=== PATIENT | female | born 1980 | race Caucasian/White ===

== ENCOUNTER 2020-05-05 15:18 | Emergency (ER) | payer MEDICARE, OTHER, SELFPAY ==
[2020-05-05] VITALS (7 sets, daily range): BP systolic 153–206; BP diastolic 78–98; PULSE 81–99; RESP 11–21; TEMP 36.9; O2SAT 97–100
--- NOTE | ~2020-05-05 | XR_ITS ---
EXAMINATION: XR chest 2V DATE: 05/05/2020 16:35 INDICATION: Left upper chest pain TECHNIQUE: PA and lateral views of the chest are obtained. COMPARISON: None available FINDINGS: The lungs are free of acute opacities. There is no pleural effusion or pneumothorax. The ca rdiomediastinal silhouette is normal. The visualized bones and soft tissues are unremarkable. IMPRESSION: 1. No acute cardiopulmonary abnormality. Reviewed, dictated and finalized at location A.
--- NOTE | 2020-05-05 15:20 | ECG_ITS ---
Measurements Intervals [place] Rate: 99 P: 39 UT: 159 QRS: -6 QRSD: 101 T: -20 QT: 337 QTc: 432 Interpretive Statements SINUS RHYTHM DELAYED PRECORDIAL R/S TRANSITION VOLTAGE CRITERIA FOR LVH BORDERLINE ST-T WAVE ABNORMALITY- ANT/INF LEADS BASELINE WANDER- II, III, AVR, AVF, V1-V2, V4-V6 BORDERLINE ECG Electronically Signed On 05-05-2020 20:18:12 CDT by Amauri Shabazz D.O.
[2020-05-05] MEDS: ASPIRIN 81 MG CHEWABLE TABLET 324 MG PO (15:37)
[2020-05-05 15:39] LABS: Basophils Absolute Auto 0.1 K/mm3 (0.0-0.1); Basophils Percent Auto 0.7 % (0.2-1.2); Eosinophils Absolute Auto 0.1 K/mm3 (0-0.3); Eosinophils Percent Auto 1.5 % (0-4.4); Hemoglobin 12.9 g/dL (12.0-15.0); Immature Granulocyte Absolute 0.02 K/mm3 (0.00-0.031); Immature Granulocyte Percent A 0.3 % (0-0.5); Lymphocytes Absolute Auto 2.38 K/mm3 (0.9-3.2); Lymphocytes Percent Auto 32.3 % (18.3-44.2); Mean Corpuscular HGB Conc 33.1 g/dl (32-36); Mean Corpuscular Hemoglobin 28.4 pg (26-34); Mean Corpuscular Volume 85.9 fl (80-100); Mean Platelet Volume 10.1 fl (7.4-10.4); Monocytes Absolute Auto 0.5 K/mm3 (0.1-0.6); Monocytes Percent Auto 6.9 % (2.6-8.5); Neutrophils Absolute Auto 4.3 K/mm3 (1.3-6.7); Neutrophils Percent Auto 58.3 % (45.5-73.1); Platelet Count Result 308 k/mm3 (150-375); Red Blood Count 4.54 M/mm3 (4.2-5.4); Red Cell Distribution Width 12.7 % (11.5-14.5); White Blood Count 7.4 K/mm3 (4.5-10.0)
[2020-05-05 15:49] LABS: Prothrombin Time 12.9 Seconds (11.1-14.7)
[2020-05-05 15:50] LABS: Anion Gap 15.7 mmol/L (7-16); Blood Urea Nitrogen 16 mg/dL (7-17); Calcium 9.4 mg/dL (8.4-10.2); Carbon Dioxide 26 mmol/L (22-30); Chloride 99 mmol/L (98-107); Estimated CRCL calculation 76 ml/min; Estimated Glomerular Filt Rate > 60; Glucose 121 mg/dL (65-105); Partial Thromboplastin Time 25.5 SECONDS (22.3-36.8); Potassium 3.7 mmol/L (3.4-5.0); Sodium 137 mmol/L (137-145)
[2020-05-05 16:02] LABS: Troponin I < 0.012 ng/mL (0.000-0.034)
--- NOTE | 2020-05-05 18:08 | ED.CHESTPAIN ---
HPI - Chest Pain General Chief Complaint: Chest Pain Stated Complaint: chest pain Time Seen by Provider: 05/05/20 16:05 Source: patient and family Mode of arrival: ambulatory Limitations: no limitations History of Present Illness HPI narrative: 40-year-old female By izabella is healthy but she has a history of PTSD bipolar and fibromyalgia and possibly metabolic syndrome She presents to the ER for evaluation of intermittent chest pains that she has been having for about a month The pain she experiences as a zing which lasts anywhere from a few seconds to maybe a minute at the longest She gets a number of these episodes every day and has not noticed that anything triggers them to occur She sometimes gets a little short of breath but uses albuterol for that and it is not related to her chest discomforts Related Data Home Medications Medication Instructions Recorded Confirmed lamotrigine 150 mg tablet 200 mg PO HS 01/20/20 trazodone 50 mg tablet 100 mg PO HS tablet 01/20/20 vortioxetine 10 mg tablet 10 mg PO HS 01/20/20 cholecalciferol (vitamin D3) 125 mcg PO DAILY 05/05/20 [Vitamin D3] docusate sodium 200 mg PO HS 05/05/20 venlafaxine 75 mg PO DAILY 05/05/20 Allergies Allergy/AdvReac Type Severity Reaction Status Date / Time avocado Allergy Unknown Swelling Verified 05/05/20 15:24 erythromycin base Allergy Unknown Vomiting Verified 11/29/18 08:04 gluten Allergy Unknown Nausea Verified 10/16/17 21:20 guaifenesin Allergy Unknown Hives Verified 11/29/18 08:05 metformin Allergy Unknown Nausea Verified 10/16/17 21:20 oseltamivir Allergy Unknown Nausea Verified 10/16/17 21:20 prazosin Allergy Unknown Hives Verified 11/29/18 08:05 shellfish derived Allergy Unknown Anaphylaxis Verified 05/05/20 15:24 SHELL FISH Allergy Unknown Anaphylaxis Uncoded 05/05/20 15:24 Review of Systems Review of Systems: All systems reviewed & are unremarkable except as noted in HPI and below Constitutional: Constitutional: Denies chills and Denies fever(s) Eyes: Eyes: Reports no additional eye complaints ENT: Denies dizziness and Denies sore throat Cardiovascular: Cardiovascular: Reports as per HPI and Reports no additional cardiovascular complaints Respiratory: Respiratory: Denies cough and Denies wheezing Gastrointestinal: Gastrointestinal: Denies diarrhea and Denies vomiting Musculoskeletal: Musculoskeletal: Reports myalgias and Reports arthralgias Neurologic: Denies vertigo and Denies syncope Psychiatric: Psychiatric: Reports depression Hematologic/Lymphatic: Hematologic/Lymphatic: Denies easy bleeding PMFSH Family History Family History Grandparent Hypertension Acute myocardial infarction Family history of dementia Family history of thoracic aortic aneurysm Family history of congestive heart failure Mother Hypertension Acute myocardial infarction Family history of malignant neoplasm of breast in first degree relative Father Family history of Parkinson's disease Other Family history of lupus erythematosus Family history of migraine headaches Social History Social History Smoking status: Never smoker Alcohol intake: current Gender identity (if verbalized by the patient): Female Exam Const: General: no acute distress and well developed Nutritional Appearance: obese Orientation/consciousness: patient oriented x3 (alert) and Other orientation findings (Alert) Limitations: no limitations HENMT: Head: normocephalic and atraumatic Ears: external ears normal General nose exam: No nasal discharge present Face and sinus: face symmetric Mouth: Yes tongue normal and Yes moist mucous membranes Throat: other (No exudate, no erythema) Eyes: Conjunctivae: conjunctivae normal Sclera: sclerae normal EOM: EOMs intact bilaterally Neck: Neck: full ROM, no lymphadenopathy and supple Thyroi
[2020-05-05 18:56] LABS: Troponin I < 0.012 ng/mL (0.000-0.034)
== END 2020-05-05 19:34 | disposition home or self-care (01) ==
PROVIDERS: General Practice; Emergency Provider Emergency Medicine; PCP Family Medicine
DX: R07.9 Chest pain, unspecified (principal); F43.10 Post-traumatic stress disorder, unspecified; F31.9 Bipolar disorder, unspecified; M79.7 Fibromyalgia; R94.31 Abnormal electrocardiogram [ECG] [EKG]
CPT/HCPCS: 36415; 71046; 80048; 84484; 85025; 85610; 85730; 93005; 99284; A9270

== ENCOUNTER 2021-10-08 10:03 | Outpatient (CLI) | payer MEDICARE, SELFPAY ==
--- NOTE | ~2021-10-08 | US_ITS ---
EXAMINATION: US pelvic complete w TV EXAM DATE: 10/08/2021 11:28 INDICATION: Abnormal uterine bleeding . TECHNIQUE: Pelvic transabdominal and transvaginal sonogram was performed. There are multiple graysca le and Doppler images available for interpretation. There is no prior study for comparison. FINDINGS: Uterus measures 7.0 x 3.1 x 4.1 cm as measured transabdominally. Bladder was not distended at time of imaging and there was poor acoustic window to evaluate the uterus. No endometrial thicken ing suspected. There is small free pelvic fluid. Right adnexa: The ovary measures 1.9 x 1.3 x 1.6 cm and is morphologically normal. Ovarian vascular f low confirmed. Left adnexa: The ovary measures 3.5 x 2.6 x 2.7 cm with small complex cystic lesion, probably small h emorrhagic cyst measuring 2.2 cm. Ovarian vascular flow confirmed. IMPRESSION: 1. Suboptimal uterus visualization but no endometrial thickening suspected. 2. Small complex cystic left ovarian lesion probably hemorrhagic cyst. Reviewed, dictated and finalized at location A. 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
== END 2021-10-08 10:04 | disposition home or self-care (01) ==
LOC: ANHIMG 10:05
PROVIDERS: PCP Family Medicine; Visit Provider Obstetrics & Gynecology
DX: N93.9 Abnormal uterine and vaginal bleeding, unspecified (principal); N83.202 Unspecified ovarian cyst, left side
CPT/HCPCS: 76830; 76856

== ENCOUNTER 2021-11-05 09:03 | Outpatient (CLI) | payer MEDICARE, SELFPAY ==
--- NOTE | ~2021-11-05 | MM_ITS ---
EXAMINATION: MM screening rhianna BI w joseph HISTORY: Screening mammogram, family history of breast cancer in her mother. TECHNIQUE: Craniocaudal and mediolateral oblique 3-D tomosynthesis images were obtained and synthetic 2-D images were generated. CAD analysis was submitted and interpreted. COMPARISON: None, baseline BREAST PARENCHYMAL COMPOSITION: The breasts are heterogeneously dense, which may obscure small masses . FINDINGS: RIGHT BREAST: There is no evidence of suspicious mass, calcification, or architectural distortion to suggest malignancy. LEFT BREAST: A mass is present in the posterior third of inner breast 10 cm from the nipple. IMPRESSION: 1. Left breast mass. 2. Additional mammographic views and possible breast ultrasound are recommended. BI-RADS Category 0: Incomplete: Needs additional imaging evaluation. Reviewed, dictated and finalized at location A. GER COST IMPRESSION: 1. Left breast mass. 2. Additional mammographic views and possible breast ultrasound are recommended . BI-RADS Category 0: Incomplete: Needs additional imaging evaluation.
== END 2021-11-05 09:04 | disposition home or self-care (01) ==
LOC: ANHIMG 09:07
PROVIDERS: PCP Family Medicine; Visit Provider Obstetrics & Gynecology
DX: Z12.31 Encounter for screening mammogram for malignant neoplasm of breast (principal); R92.8 Other abnormal and inconclusive findings on diagnostic imaging of breast
CPT/HCPCS: 77063; 77067

== ENCOUNTER 2021-11-18 12:35 | Outpatient (CLI) | payer MEDICARE, SELFPAY ==
--- NOTE | ~2021-11-18 | MMUS_ITS ---
EXAMINATION: MM diagnostic rhianna LT w joseph, US breast LT limited HISTORY: Follow-up left breast mass TECHNIQUE: Additional 3-D tomosynthesis images of the left breast were performed and synthetic 2-D im ages were generated. CAD analysis was submitted and interpreted. High resolution Limited left breast ultrasound was performed. COMPARISON: 11/05/2021 BREAST PARENCHYMAL COMPOSITION: Breast composed of scattered areas of fibroglandular density FINDINGS: MAMMOGRAPHIC FINDINGS: . There is a persistent mass in the lower inner quadrant of the left breast. No suspicious calcificat ions or architectural distortion. ULTRASOUND: Limited left breast ultrasound: At 9:00, 7 cm from the nipple there is a 9 mm cyst corresponding to t he mammographic abnormality. There is an adjacent mildly prominent tubular structure, likely focally prominent duct. IMPRESSION: 1. Probable benign findings of the left breast. 2. Recommend 6 month follow-up diagnostic left mammogram and limited ultrasound. BI-RADS category 3, probably benign findings. Reviewed, dictated and finalized at location A. E BANKER IMPRESSION: 1. Probable benign findings of the left breast. 2. Recommend 6 month follow-up diagnostic left mammogram and limited ultrasound . BI-RADS category 3, probably benign findings.
== END 2021-11-18 12:36 | disposition home or self-care (01) ==
LOC: ANHIMG 12:37
PROVIDERS: PCP Family Medicine; Visit Provider Family Medicine
DX: R92.8 Other abnormal and inconclusive findings on diagnostic imaging of breast (principal)
CPT/HCPCS: 76642; 77061; 77065; G0279

== ENCOUNTER 2021-12-19 14:56 | Outpatient (RCR) | payer MEDICARE, SELFPAY ==
[2021-12-19 14:58] VITALS: BMI 39.6
[2021-12-19 15:15] VITALS: BMI 39.6
== END 2022-03-12 13:38 | disposition home or self-care (01) ==
LOC: ANHDMC 14:56
PROVIDERS: PCP Family Medicine; Visit Provider Family Medicine
DX: E11.65 Type 2 diabetes mellitus with hyperglycemia (principal); E66.01 Morbid (severe) obesity due to excess calories; I10 Essential (primary) hypertension; Z68.41 Body mass index [BMI] 40.0-44.9, adult; Z71.3 Dietary counseling and surveillance
CPT/HCPCS: 97802; 99199

== ENCOUNTER → 2022-01-21 01:41 | Outpatient (CLI) | payer MEDICARE, SELFPAY ==
[2022-01-21 11:16] LABS: SARS-CoV-2 RNA PCR Negative
== END ==
PROVIDERS: PCP Family Medicine; Visit Provider Otolaryngology
DX: Z01.812 Encounter for preprocedural laboratory examination (principal); Z20.822 Contact with and (suspected) exposure to COVID-19
CPT/HCPCS: C9803; U0003; U0005

== ENCOUNTER 2022-01-22 15:18 | Outpatient (CLI) | payer MEDICARE, SELFPAY ==
--- NOTE | 2022-01-22 15:30 | ECG_ITS ---
Measurements Intervals [place] Rate: 69 P: 33 MO: 167 QRS: -3 QRSD: 93 T: -15 QT: 392 QTc: 420 Interpretive Statements SINUS RHYTHM LOW QRS VOLTAGE IN PRECORDIAL LEADS [QRS DEFLECTION < 1.0 mV IN CHEST LEADS] ABNORMAL ECG INFERIOR T-WAVE ABNORMALITY, CONSIDER ISCHEMIA NONSPECIFIC ST ABNORMALITY ABNORMAL ECG Electronically Signed On 01-22-2022 16:06:40 CDT by Ari Lee M.D.
[2022-01-22 15:51] LABS: Anion Gap 8 mmol/L (8-16); Blood Urea Nitrogen 13 mg/dL (7-17); Calcium 8.8 mg/dL (8.4-10.2); Carbon Dioxide 28 mmol/L (22-30); Chloride 102 mmol/L (98-107); Estimated Glomerular Filt Rate 55; Glucose 148 mg/dL (65-110); Potassium 4.4 mmol/L (3.4-5.0); Sodium 138 mmol/L (137-145)
== END 2022-01-22 15:19 | disposition home or self-care (01) ==
LOC: ANHSURGERY 15:21
PROVIDERS: Anesthesiology; PCP Family Medicine; Visit Provider Otolaryngology
DX: Z01.818 Encounter for other preprocedural examination (principal); E11.65 Type 2 diabetes mellitus with hyperglycemia; I10 Essential (primary) hypertension; R94.31 Abnormal electrocardiogram [ECG] [EKG]
CPT/HCPCS: 36415; 80048; 93005

== ENCOUNTER 2022-01-24 04:20 | Day surgery (SDC) | payer MEDICARE, SELFPAY ==
[2022-01-20 14:17] VITALS: BMI 39.4
--- NOTE | 2022-01-20 14:48 | PC.NURSE ---
Report to the Outpatient Waiting Room, entrance under the green pavilion located off [facility], at time 10:15 on date 01/24/22. OR Time: 12:15. - You and your visitor will be asked a series of questions to screen for COVID 19 for your protection. - A mask is required within the hospital. One visitor will be allowed to accompany the patient into the hospital. Patients visitor will be instructed to remain with patient at all times or leave the building. We will allow the visitor to come back to the postoperative area when patient is ready. Preoperative COVID Testing Requirements: COVID TEST 01/21 AT 8:45 No COVID Test needed if: (proof is required; if not received patient will have Rapid Test prior to entry) - Patient has received COVID Vaccine at least 14 days prior to procedure date or - Patient has positive COVID test result within last 90 days of surgery date. COVID Test needed if above criteria is not met If not COVID vaccinated a COVID test must be conducted within 72 hours of surgery and patient is asked to isolate self from time of testing until procedure. You will go to the [facility] for your COVID testing. The [employer] site is located at the corner of [address] [facility]. You will only be called if COVID results are positive and your surgeon may reschedule your elective surgery date. Patients may have clear liquids (water, carbonated beverages, clear teas, apple juice) until 3 hours prior to surgery (9:15) with a maximum of 20 ounces. - No food from midnight until time of surgery Take the following medications with a SIP of water the morning of surgery: SYNTHROID, INHALERS (IF NEEDED) Medications to discontinue per physician: VITAMINS/SUPPLEMENTS Date to take last dose: 01/20/22 Please no make-up, nail comoran, hairspray, perfume, deodorant, or body powder the day of surgery. No jewelry (including any body piercings) or valuables the day of surgery, leave them at home. Please take a shower or bath the night before, or the morning of, surgery with an antibacterial soap. Wear comfortable, loose fitting clothing. - Jewelry must be removed prior to entering the operating room. Rings and piercings that are not removed may be cut off. - The hospital will not accept responsibility for valuables. - Please leave all valuables, including medications, at home the day of surgery. If you are going home after surgery, a licensed telephone directory distributor driver must drive you home. - NO public transportation without another adult. - We recommend that an adult stay with you for 24 hours following discharge. - We also recommend that you do not drive, make important decision, drink alcoholic beverages, or take any drugs that were not prescribed by your health care provider for at least 24 hours after your discharge time. Follow any additional instructions given to you from your surgeon. Telephone instructions given to WILL GARDNER and asked if any additional questions and then verbalized understanding. Patient advised to call surgeon office or pre surgery nurse liaison [phone] if any additional questions.
--- NOTE | 2022-01-23 16:08 | PM.IMHP ---
H&P: HPI History of Present Illness Date/Time: 01/23/22 16:08 Chief Complaint: Neck mass posterior Narrative: patient presents for planned surgical procedure. No change in symptoms no change in history. Review of Systems Constitutional: Constitutional: Denies fatigue, Denies fever(s) and Denies lethargy Eyes: Eyes: Denies blurry vision and Denies change in vision ENT: Reports as per HPI Cardiovascular: Cardiovascular: Denies chest pain Respiratory: Respiratory: Denies cough Endocrine: Endocrine: Denies fatigue Hematologic/Lymphatic: Hematologic/Lymphatic: Denies easy bleeding, Denies easy bruising and Denies lymphadenopathy Allergic/Immunologic: Allergic/Immunologic: Denies seasonal rhinorrhea REPLACED BY [facility] Past Medical History Medical History Allergic rhinitis Amenorrhea, unspecified Body mass index (bmi) 38.0-38.9, adult (11/29/18) Bronchospasm Class 2 obesity with body mass index (BMI) of 38.0 to 38.9 in adult Obesity, unspecified Overweight (BMI 25.0-29.9) Family History Family History Grandparent Hypertension Acute myocardial infarction Family history of dementia Family history of thoracic aortic aneurysm Family history of congestive heart failure Mother Hypertension Acute myocardial infarction Family history of malignant neoplasm of breast in first degree relative Father Family history of Parkinson's disease Other Family history of lupus erythematosus Family history of migraine headaches Social History Social History Smoking status: Never smoker Alcohol intake: never Substance use: never Substance use type: does not use Gender identity (if verbalized by the patient): Female Spiritual care concerns: No Meds Home Medications and Allergies Home Medications Medication Instructions Recorded Confirmed Type albuterol sulfate 90 mcg/actuation 2 inhalation INHALATION Q4-6H #18 01/17/20 01/20/22 Rx aerosol inhaler gm lamotrigine 150 mg tablet 200 mg PO HS 01/20/20 01/20/22 History trazodone 50 mg tablet 100 mg PO HS PRN tablet 01/20/20 01/20/22 History docusate sodium 200 mg PO HS 05/05/20 01/20/22 History vortioxetine 10 mg tablet 20 mg PO HS tablet 10/23/21 01/20/22 History Synthroid 50 mcg tablet 50 mcg PO DAILY #90 tablet NS 10/30/21 01/20/22 Rx flash glucose scanning reader #1 ea 10/30/21 01/13/22 Rx flash glucose sensor #6 ea 10/30/21 01/13/22 Rx benztropine 1.5 mg PO HS 01/20/22 01/20/22 History cholecalciferol (vitamin D3) 125 mcg PO HS 01/20/22 01/20/22 History [Vitamin D3] coenzyme Q10 [CoQ-10] 100 mg PO HS 01/20/22 01/20/22 History empagliflozin [Jardiance] 10 mg PO HS 01/20/22 01/20/22 History esomeprazole magnesium [Nexium 20 mg PO HS 01/20/22 01/20/22 History 24HR] fluticasone furoate-vilanterol 1 inhalation INHALATION Q24H PRN 01/20/22 01/20/22 History [Breo Ellipta] lisinopril 20 mg PO HS 01/20/22 01/20/22 History metoprolol succinate 50 mg PO HS 01/20/22 01/20/22 History quetiapine 300 mg PO HS 01/20/22 01/20/22 History Allergies Allergy/AdvReac Type Severity Reaction Status Date / Time avocado Allergy Unknown Swelling Verified 01/20/22 14:11 erythromycin base Allergy Unknown Vomiting Verified 01/20/22 14:11 gluten Allergy Unknown Nausea Verified 01/20/22 14:11 guaifenesin Allergy Unknown Hives Verified 01/20/22 14:11 metformin Allergy Unknown Nausea Verified 01/20/22 14:11 oseltamivir Allergy Unknown Nausea Verified 01/20/22 14:11 prazosin Allergy Unknown Hives Verified 01/20/22 14:11 shellfish derived Allergy Unknown Anaphylaxis Verified 01/20/22 14:11 SHELL FISH Allergy Unknown Anaphylaxis Uncoded 01/20/22 14:11 Exam Const: General: cooperative, healthy appearing, comfortable, well developed and alert HENMT: Head: normal to inspection, normocephalic and atraumatic
--- NOTE | 2022-01-24 06:54 | WPDANESEPPF ---
Anes - Initial Pre Proc Eval Procedure: Operation Date: 01/24/22 13:45 Proposed Procedures p Excision Left Posterior Neck Mass - Jaspal Silveira MD Date/Time: 01/24/22 06:54 Surgeon: Jaspal Silveira MD Pre Op Diagnosis: left posterior neck mass Patient Data Age: 41 Gender: F Height: 1.63 m Weight: 104.33 kg Allergies Allergy/AdvReac Type Severity Reaction Status Date / Time avocado Allergy Unknown Swelling Verified 01/24/22 09:55 erythromycin base Allergy Unknown Vomiting Verified 01/24/22 09:55 gluten Allergy Unknown Nausea Verified 01/24/22 09:55 guaifenesin Allergy Unknown Hives Verified 01/24/22 09:55 metformin Allergy Unknown Nausea Verified 01/24/22 09:55 oseltamivir Allergy Unknown Nausea Verified 01/24/22 09:55 prazosin Allergy Unknown Hives Verified 01/24/22 09:55 shellfish derived Allergy Unknown Anaphylaxis Verified 01/24/22 09:55 SHELL FISH Allergy Unknown Anaphylaxis Uncoded 01/24/22 09:55 Home Medications Medication Instructions Recorded Confirmed Type albuterol sulfate 90 mcg/actuation 2 inhalation INHALATION Q4-6H #18 01/17/20 01/20/22 Rx aerosol inhaler gm lamotrigine 150 mg tablet 200 mg PO HS 01/20/20 01/20/22 History trazodone 50 mg tablet 100 mg PO HS PRN tablet 01/20/20 01/20/22 History docusate sodium 200 mg PO HS 05/05/20 01/20/22 History vortioxetine 10 mg tablet 20 mg PO HS tablet 10/23/21 01/20/22 History Synthroid 50 mcg tablet 50 mcg PO DAILY #90 tablet NS 10/30/21 01/24/22 Rx flash glucose scanning reader #1 ea 10/30/21 01/13/22 Rx flash glucose sensor #6 ea 10/30/21 01/13/22 Rx benztropine 1.5 mg PO HS 01/20/22 01/20/22 History cholecalciferol (vitamin D3) 125 mcg PO HS 01/20/22 01/20/22 History [Vitamin D3] coenzyme Q10 [CoQ-10] 100 mg PO HS 01/20/22 01/20/22 History empagliflozin [Jardiance] 10 mg PO HS 01/20/22 01/20/22 History esomeprazole magnesium [Nexium 20 mg PO HS 01/20/22 01/20/22 History 24HR] fluticasone furoate-vilanterol 1 inhalation INHALATION Q24H PRN 01/20/22 01/20/22 History [Breo Ellipta] lisinopril 20 mg PO HS 01/20/22 01/20/22 History metoprolol succinate 50 mg PO HS 01/20/22 01/20/22 History quetiapine 300 mg PO HS 01/20/22 01/20/22 History Patient hx anesthesia problems: none Family hx anesthesia problems: none Results Review: All pre-operative results and documents have been reviewed as part of the pre-operative evaluation. [facility] Past Medical History Medical History (Updated 01/24/22 @ 06:54 by Beto Tee DO) Allergic rhinitis Amenorrhea, unspecified Asthma Bipolar disorder, unspecified (11/30/18) Body mass index (bmi) 38.0-38.9, adult (11/29/18) Bronchospasm Class 2 obesity with body mass index (BMI) of 38.0 to 38.9 in adult Essential hypertension Fibromyalgia Hypothyroid Obesity, unspecified Overweight (BMI 25.0-29.9) Type 2 diabetes mellitus with hyperglycemia Family History Family History Grandparent Hypertension Acute myocardial infarction Family history of dementia Family history of thoracic aortic aneurysm Family history of congestive heart failure Mother Hypertension Acute myocardial infarction Family history of malignant neoplasm of breast in first degree relative Father Family history of Parkinson's disease Other Family history of lupus erythematosus Family history of migraine headaches Social History Social History Smoking status: Never smoker Alcohol intake: never Substance use: never Substance use type: does not use Living arrangements: with family Gender identity (if verbalized by the patient): Female Spiritual care concerns: No Anes - Eval Final PreProcedure Day of Procedure 01/24/22 06:54 Patient weight: obese Heart: regular rate and rhythm Lungs: clear to auscultation and normal air movement Airway: Mallampati scale class II Neurological: alert and
--- NOTE | 2022-01-24 07:12 | WPDHPUPDATE1 ---
History and Physical Update Update Date/Time: 01/24/22 07:12 History and Physical has been reviewed, including an updated exam of the patient. There are NO changes in the patient's condition. Risks, benefits, and alternatives have been discussed and questions answered. Patient agrees to proceed with procedure.
[2022-01-24 10:34] LABS: Glucose Point of Care 138 mg/dl (65-105)
[2022-01-24] MEDS: LACTATED RINGERS 1,000 ML 30 ML IV CONT ×2 (10:35→12:51)
[2022-01-24 10:36] VITALS: BP 136/90; PULSE 72; RESP 18; TEMP 36.5; O2SAT 98
[2022-01-24 11:21] LABS: Beta HCG Quantitative < 2.39 mIU/ML
[2022-01-24] MEDS: ceFAZolin SODIUM 1 GM VIAL 2 GM IV PUSH (11:26)
[2022-01-24] MEDS: LIDO 1%/EPINEPHRINE/PF 1:200,000 30 ML VIAL 10 ML XX (11:41)
[2022-01-24] MEDS: BACITRACIN/POLYMYXIN B OINT 15 GM TUBE 1 APPLIC TOPICAL (12:45)
[2022-01-24 12:51] VITALS: BP 124/72; PULSE 58; RESP 23; TEMP 36.8; O2SAT 100
[2022-01-24 13:05] VITALS: BP 115/81; PULSE 71; RESP 12; O2SAT 100
[2022-01-24 13:12] LABS: Glucose Point of Care 136 mg/dl (65-105)
--- NOTE | 2022-01-24 13:16 | P.OP_ITS ---
Procedure Note - Detailed Date of Procedure 01/24/22 Pre-op Diagnosis left posterior neck mass Post-op Diagnosis Same Procedure Performed Excision of left posterior neck mass Surgeon Jaspal Silveira MD Anesthesia General Indications See above Findings Fairly large 3-5 cm neck mass removed from the posterior deep region extending all the way to the prevertebral fascia sent for pathologic analysis Description of Procedure Patient identified consent verified. Patient brought to the operating. Time- out performed. General anesthesia induced. Endotracheal tube secured. Patient then positioned correctly. Patient prepped and draped. Second time-out performed. 4 cm incision drawn over the palpable left posterior neck mass. 1 cc 1% lidocaine 1 100,000 parts epinephrine injected deep to the pre drawn surgical incision. Fifteen blade used to cut through the skin. Bovie electrocautery at a setting 10 utilized to dissect down through the investing fascia. There was a small collection of fat which was removed. Possible mass was palpated deep to the investing fascia. Bovie electrocautery as well as blunt dissection and sharp dissection with scissors utilized to cut through this revealing a mass which appeared to be lipoma yet pale somewhat of a pathological lymph node appearance. This mass was 3-5 cm across and removed until the spinal rectus muscles were palpated. As much of the mass that was present and easily removed was. The wound was then copiously irrigated with sterile normal saline. [place] drain placed. Fascial layers closed with 3-0 interrupted Vicryl sutures. Deep dermal layer closed with 3 interrupted Vicryl sutures. Skin closed with a running 5 0 fast gut suture. Dennis sutured to skin with 3-0 interrupted nylon suture. Total blood loss probably 10 cc or less. I performed all dictated portions of the procedure. Care the patient was turned over to Anesthesiology. Antibiotic ointment placed over the incision. No complications. Estimated Blood Loss 10 Drains Yes Packing No Pathology Yes Complications No immediate complications Condition Stable Disposition PACU
[2022-01-24 13:20] VITALS: BP 121/89; PULSE 64; RESP 12; O2SAT 96
[2022-01-24] MEDS: fentaNYL CITRATE INJ (*CRX) 100 MCG/2 ML VIAL 25 MCG IV PUSH (13:25)
[2022-01-24 13:44] VITALS: BP 143/81; PULSE 70; RESP 14
[2022-01-24 14:10] VITALS: BP 137/81; PULSE 72; RESP 14
== END 2022-01-24 14:32 | disposition home or self-care (01) ==
PROVIDERS: Anesthesiology; PCP Family Medicine; Visit Provider Otolaryngology
PROC: (CPT 21552; principal; 2022-01-24 11:45)
DX: D17.0 Benign lipomatous neoplasm of skin and subcutaneous tissue of head, face and neck (principal); Z79.51 Long term (current) use of inhaled steroids; J45.909 Unspecified asthma, uncomplicated; F31.9 Bipolar disorder, unspecified; E11.65 Type 2 diabetes mellitus with hyperglycemia; M79.7 Fibromyalgia; E03.9 Hypothyroidism, unspecified; E66.9 Obesity, unspecified; Z68.39 Body mass index [BMI] 39.0-39.9, adult
CPT/HCPCS: 21552; 36415; 82948; 84702; 88304; 88307; A9270; J0330; J0690; J1100; J2405; J2704; J3010; J7120

== ENCOUNTER 2022-05-23 12:11 | Outpatient (CLI) | payer MEDICARE, SELFPAY ==
--- NOTE | ~2022-05-23 | MMUS_ITS ---
EXAMINATION: MM diagnostic rhianna LT w joseph, US breast LT limited HISTORY: Six-month follow-up for probably benign left breast mass TECHNIQUE: Craniocaudal, mediolateral, and mediolateral oblique 3-D tomosynthesis images of the left breast were performed and synthetic 2-D images were generated. CAD analysis was submitted and interpr eted. High resolution limited left breast ultrasound was performed. COMPARISON: 11/18/2021, 11/05/2021 BREAST PARENCHYMAL COMPOSITION: The breasts are heterogeneously dense, which may obscure small masses . FINDINGS: MAMMOGRAPHIC FINDINGS: There is a stable 9 mm oval, circumscribed, equal density mass in the posterior third of the inner br east at the 9:00 location 10 cm from the nipple. There has been no suspicious interval change. An are a of possible architectural distortion in the upper breast on the mediolateral view does not persist with spot compression. ULTRASOUND: There is a stable 9 mm x 5 mm oval, circumscribed, parallel, hypoechoic mass with no posterior featur es or internal vascularity at the 9:00 location 7 cm from the nipple. IMPRESSION: 1. Stable, probably benign left breast mass. 2. Recommend 6 month follow-up diagnostic mammogram and ultrasound. BI-RADS category 3, probably benign findings. Reviewed, dictated and finalized at location A. IMPRESSION: 1. Stable, probably benign left breast mass. 2. Recommend 6 month follow-up diagnostic mammogram and ultrasound. BI-RADS category 3, probably benign findings.
== END 2022-05-23 12:12 | disposition home or self-care (01) ==
PROVIDERS: PCP Family Medicine; Visit Provider Family Medicine
DX: R92.8 Other abnormal and inconclusive findings on diagnostic imaging of breast (principal)
CPT/HCPCS: 76642; 77061; 77065; G0279

== ENCOUNTER 2023-06-23 19:32 | Emergency (ER) | payer MEDICARE, SELFPAY ==
[2023-06-23 19:43] VITALS: BP 135/87; PULSE 71; RESP 16; TEMP 35.8; O2SAT 98
--- NOTE | 2023-06-23 20:19 | ED.GENADULT ---
HPI - General Adult General Chief complaint: Urogenital-Female Stated complaint: UTI Source: patient Mode of arrival: ambulatory Limitations: no limitations History of Present Illness HPI narrative: Patient presents for evaluation of urinary symptoms for the last 4 days. Symptoms include urinary frequency, hesitancy, dribbling, suprapubic pressure, low back pain and dysuria. She denies any fever, chills, vaginal bleeding/ discharge, hematuria. She has been taking azo for symptoms. She thinks she has urinary tract infection. Related Data Home Medications Medication Instructions Recorded Confirmed trazodone 50 mg tablet 100 mg PO HS PRN Insomnia 01/20/20 03/19/23 docusate sodium 100 mg capsule 200 mg PO HS 05/05/20 03/19/23 benztropine 1 mg tablet 1.5 mg PO HS 01/20/22 03/19/23 cholecalciferol (vitamin D3) 125 125 mcg PO HS 01/20/22 03/19/23 mcg (5,000 unit) tablet (Vitamin D3) coenzyme Q10 100 mg capsule 100 mg PO HS 01/20/22 03/19/23 (CoQ-10) esomeprazole magnesium 20 mg 20 mg PO HS 01/20/22 03/19/23 capsule,delayed release (Nexium 24HR) quetiapine 300 mg tablet 300 mg PO HS 01/20/22 03/19/23 lamotrigine 150 mg tablet 300 mg PO HS 02/12/23 03/19/23 (Lamictal) vortioxetine 10 mg tablet 10 mg PO HS 02/12/23 03/19/23 (Trintellix) Allergies Allergy/AdvReac Type Severity Reaction Status Date / Time avocado Allergy Unknown Swelling Verified 06/23/23 19:52 erythromycin base Allergy Unknown Vomiting Verified 06/23/23 19:52 gluten Allergy Unknown Nausea Verified 06/23/23 19:52 guaifenesin Allergy Unknown Hives Verified 06/23/23 19:52 metformin Allergy Unknown Nausea Verified 06/23/23 19:52 oseltamivir Allergy Unknown Nausea Verified 06/23/23 19:52 prazosin Allergy Unknown Hives Verified 06/23/23 19:52 shellfish derived Allergy Unknown Anaphylaxis Verified 06/23/23 19:52 bee venom protein (honey bee) Allergy Blister Verified 06/23/23 19:52 SHELL FISH Allergy Unknown Anaphylaxis Uncoded 06/23/23 19:52 Review of Systems Review of Systems: CONSTITUTIONAL: Denies fever, chills, or sweats. EYES: Denies visual changes, redness, or discharge. ENT: Denies rhinorrhea, congestion, sore throat, or otalgia. CARDIOVASCULAR: Denies chest pain, palpitations, or edema. RESPIRATORY: Denies cough or dyspnea. GASTROINTESTINAL: Denies abdominal pain, nausea, vomiting, or diarrhea. GENITOURINARY: Reports urinary frequency, hesitancy, dribbling, dysuria and suprapubic pressure. Denies Hematuria, vaginal bleeding or discharge. SKIN: Denies rash or itching. MUSCULOSKELETAL: Reports low back pain. Denies, joint pain, or myalgia. NEUROLOGIC: Denies headache, numbness, dizziness, or weakness. PSYCHIATRIC: Denies anxiety or depression. [facility] Past Medical History Medical History Allergic rhinitis Amenorrhea, unspecified Asthma Bipolar disorder, unspecified (11/30/18) Body mass index (bmi) 38.0-38.9, adult (11/29/18) Bronchospasm Class 2 obesity with body mass index (BMI) of 38.0 to 38.9 in adult Essential hypertension Fibromyalgia Hypothyroid Obesity, unspecified Overweight (BMI 25.0-29.9) Type 2 diabetes mellitus with hyperglycemia Surgical History Surgical History No pertinent past surgical history Family History Family History Grandparent Hypertension Acute myocardial infarction Family history of dementia Family history of thoracic aortic aneurysm Family history of congestive heart failure Mother Hypertension Acute myocardial infarction Family history of malignant neoplasm of breast in first degree relative Father Family history of Parkinson's disease Other Family history of lupus erythematosus Family history of migraine headaches Social History Social History (Updated 03/17/23 @ 13:42 by Sonia Umanzor MA)
== END 2023-06-23 20:24 | disposition home or self-care (01) ==
PROVIDERS: Emergency Provider Nurse Practitioner; PCP Family Medicine
DX: N39.0 Urinary tract infection, site not specified (principal); I10 Essential (primary) hypertension; E11.9 Type 2 diabetes mellitus without complications
CPT/HCPCS: 81003; 87077; 87086; 87186; 99213; G0463

== ENCOUNTER 2024-05-21 18:47 | Emergency (ER) | payer MEDICARE, SELFPAY ==
--- NOTE | 2024-05-21 18:49 | ED.DENTAL ---
HPI - Dental/Oral General Chief complaint: Dental/Oral Stated complaint: pain in mouth Time Seen by Provider: 05/21/24 18:48 Source: patient Mode of arrival: ambulatory Limitations: no limitations History of Present Illness HPI Narrative: Janeth is a 44-year-old female patient presenting to the clinic today with complaints of possible thrush. She reports has been having pain in the back of her throat. Is having difficulty swallowing. No fever, chills, or body aches. Does suffer from seasonal allergies. No recent antibiotics use. Related Data Home Medications Medication Instructions Recorded Confirmed trazodone 50 mg tablet 100 mg PO HS PRN Insomnia 01/20/20 05/21/24 docusate sodium 100 mg capsule 200 mg PO HS 05/05/20 05/21/24 benztropine 1 mg tablet 1.5 mg PO HS 01/20/22 05/21/24 cholecalciferol (vitamin D3) 125 125 mcg PO HS 01/20/22 05/21/24 mcg (5,000 unit) tablet (Vitamin D3) coenzyme Q10 100 mg capsule 100 mg PO HS 01/20/22 05/21/24 (CoQ-10) esomeprazole magnesium 20 mg 20 mg PO HS 01/20/22 05/21/24 capsule,delayed release (Nexium 24HR) quetiapine 300 mg tablet 300 mg PO HS 01/20/22 05/21/24 lamotrigine 150 mg tablet 300 mg PO HS 02/12/23 05/21/24 (Lamictal) vortioxetine 5 mg tablet 5 mg PO DAILY 12/10/23 05/21/24 (Trintellix) bupropion HCl 150 mg 24 hr tablet, 150 mg PO DAILY 04/27/24 05/21/24 extended release Allergies Allergy/AdvReac Type Severity Reaction Status Date / Time avocado Allergy Severe Swelling Verified 05/21/24 18:54 bee venom protein (honey bee) Allergy Severe Blister Verified 05/21/24 18:54 shellfish derived Allergy Severe Anaphylaxis Verified 05/21/24 18:54 erythromycin base Allergy Intermediate Vomiting Verified 05/21/24 18:54 guaifenesin Allergy Intermediate Hives Verified 05/21/24 18:54 prazosin Allergy Intermediate Hives Verified 05/21/24 18:54 gluten Allergy Mild Nausea Verified 05/21/24 18:54 metformin Allergy Mild Nausea Verified 05/21/24 18:54 oseltamivir Allergy Mild Nausea Verified 05/21/24 18:54 SHELL FISH Allergy Severe Anaphylaxis Uncoded 05/21/24 18:54 Review of Systems Review of Systems: Pertinent positives per HPI. Patient denies any fever, chills, rash, headache, visual changes, dizziness, cough, shortness of breath, chest pain, palpitations, nausea, vomiting, diarrhea, constipation, abdominal pain, or any urinary issues. [facility] Past Medical History Medical History Allergic rhinitis Amenorrhea, unspecified Asthma Bipolar disorder, unspecified (11/30/18) Body mass index (bmi) 38.0-38.9, adult (11/29/18) Bronchospasm Class 2 obesity with body mass index (BMI) of 38.0 to 38.9 in adult Essential hypertension Fibromyalgia Hearing loss associated with syndrome of both ears Hypothyroid Obesity, unspecified Overweight (BMI 25.0-29.9) Type 2 diabetes mellitus with hyperglycemia Family History Family History Grandparent Hypertension Acute myocardial infarction Family history of dementia Family history of thoracic aortic aneurysm Family history of congestive heart failure Mother Hypertension Acute myocardial infarction Family history of malignant neoplasm of breast in first degree relative Father Family history of Parkinson's disease Other Family history of lupus erythematosus Family history of migraine headaches Social History Social History Smoking status: Never smoker Alcohol intake: never Substance use: never Substance use type: does not use Do You Feel Safe in your Home?: Yes Lack of Transportation: No Lack of Food: Never True Current Housing: I Have Housing Concerned About Future Housing: No Difficulty Paying Gas/Electric Bills: No Difficulty Paying for Meds: No Currently Unemployed: No Education: Bachelor's Degree Difficulty w/
[2024-05-21 18:57] VITALS: BP 111/68; PULSE 86; RESP 16; TEMP 36.9; O2SAT 99
== END 2024-05-21 19:30 | disposition home or self-care (01) ==
PROVIDERS: Emergency Provider Nurse Practitioner Family; PCP Family Medicine
DX: J02.0 Streptococcal pharyngitis (principal); J45.909 Unspecified asthma, uncomplicated; E66.9 Obesity, unspecified; Z68.34 Body mass index [BMI] 34.0-34.9, adult; I10 Essential (primary) hypertension; M79.7 Fibromyalgia; E03.9 Hypothyroidism, unspecified; E11.9 Type 2 diabetes mellitus without complications; F31.9 Bipolar disorder, unspecified
CPT/HCPCS: 87880; 99213; G0463

== ENCOUNTER 2024-07-13 07:53 | Outpatient (CLI) | payer MEDICARE, SELFPAY | END 2024-07-13 07:54 | disposition home or self-care (01) | LOC: ANHAUDIO 07:56 | PROVIDERS: PCP Family Medicine; Visit Provider Family Medicine | DX: H91.93 Unspecified hearing loss, bilateral (principal); H93.13 Tinnitus, bilateral; R42 Dizziness and giddiness; H73.899 Other specified disorders of tympanic membrane, unspecified ear | CPT/HCPCS: 92557; 92567 ==

== ENCOUNTER 2025-04-13 16:07 | Emergency (ER) | payer MEDICARE, SELFPAY ==
--- NOTE | ~2025-04-13 | CT_ITS ---
CLINICAL INDICATION: Hematochezia COMPARISON: None. TECHNIQUE: Multiple contiguous axial images of the abdomen and pelvis were performed without the admi nistration of intravenous contrast The dose-length product (DLP) was 749.47 mGy-cm. Automated exposure control and iterative reconstruction technique were employed. FINDINGS/OBSERVATIONS: Visualized lower thorax: The bilateral lung bases are clear. The heart is of normal size, without pericardial effusion. Small hiatal hernia is present. Liver: The liver demonstrates homogeneous attenuation and is not enlarged. Gallbladder and biliary system: The gallbladder is only minimally distended, and otherwise unremarkable. Pancreas: Limited evaluation of the pancreas secondary to the lack of intravenous contrast. However, there is a 3.4 x 2.3 cm focus with rim calcifications in the body of the pancreas. No surrou nding inflammatory change is present. No distal pancreatic atrophy or ductal dilatation is noted. Spleen: The spleen demonstrates homogeneous attenuation and is not enlarged. Kidneys: The bilateral kidneys are unremarkable, without hydronephrosis or renal calculi. Adrenal glands: Unremarkable. Gastrointestinal tract: Mural thickening with surrounding inflammatory change within the descending colon for which a short s egment colitis is suspected. Appendix: The appendix is not definitively visualized. However, no pericecal inflammatory change is identified suggest the presence of acute appendicitis. Vasculature: Unremarkable. Lymph nodes: Limited evaluation without intravenous contrast. Pelvic structures: The bladder is distended, and otherwise unremarkable. The uterus is anteverted and anteflexed, and otherwise unremarkable. 18 mm focus of increased attenuation within the right ovary, possibly a hemorrhagic cyst for which fo cused ultrasound is recommended. Body wall and musculoskeletal: No significant degenerative disease within the lower thoracic or lumbosacral spine. IMPRESSION: Findings within the descending colon for which a colitis is suspected. Findings within the body of the pancreas for which the differential diagnosis is broad and includes a pancreatic pseudocyst with a rim or a shell-like calcification, mucinous cystic neoplasm, serous cys tadenoma, versus metastatic disease (rare and less likely). Contrast enhanced MRI (with pancreatic mass protocol) is suggested for further evaluation and for bio psy planning (endoscopic versus percutaneous). Of note, this focus is amenable to percutaneous biopsy with hydrodissection. Additional findings within the right ovary which may represent a hemorrhagic cyst for which focused u ltrasound is recommended. Reviewed, dictated and finalized at location A. IMPRESSION: Findings within the descending colon for which a colitis is suspected. Findings within the body of the pancreas for which the differential diagnosis i s broad and includes a pancreatic pseudocyst with a rim or a shell-like calcifi cation, mucinous cystic neoplasm, serous cystadenoma, versus metastatic disease (rare and less likely). Contrast enhanced MRI (with pancreatic mass protocol) is suggested for further evaluation and for biopsy planning (endoscopic versus percutaneous). Of note, this focus is amenable to percutaneous biopsy with hydrodissection. Additional findings within the right ovary which may represent a hemorrhagic cy st for which focused ultrasound is recommended.
--- OUTSIDE RECORDS SUMMARY | 2025-04-13 16:10 | XMS_ITS | Clinical Summary ---
Author Organization [facility] Address [address] [place] [address] Care Team Providers Care Cement Worker Name Role Phone Martha Nolen MD Primary Care Provider + Letty Giordano MD Unavailable [phone] Allergies Active Allergy Reactions Criticality Noted Date Comments Avocado Oil Other (See comments),Swelling Medium 06/11/2018 Gluten Stomach upset Low 06/11/2018 [place] Extract Itching Low 11/11/2019 Prazosin Palpitations Low 06/11/2018 Shellfish Containing Products Anaphylaxis High 06/11/2018 Medications lamoTRIgine (LaMICtal) 150 mg tablet 05/20/2022 Active benztropine (COGENTIN) 1 mg tablet 07/01/2022 Active metoprolol XL (TOPROL-XL) 50 mg extended release tablet Take 50 mg by mouth daily 07/10/2022 Active lisinopriL (PRINIVIL,ZESTR IL) 20 mg tablet Take 20 mg by mouth daily 06/22/2022 Active Synthroid 50 mcg tablet Take 50 mcg by mouth daily 07/02/2022 Active QUEtiapine (SEROquel) 300 mg tablet 07/01/2022 Active traZODone (DESYREL) 100 mg tablet Take by mouth nightly as needed 07/01/2022 Active Trintellix 20 mg tablet Take 20 mg by mouth daily 07/02/2022 Active Active Problems Problem Noted Date Diagnosed Date Mass of left breast 08/12/2022 Surgical History Surgery Date Site/Laterality Comments MYRINGOTOMY W/ TUBES BREAST BIOPSY 08/26/2022 Left Medical History Medical History Date Comments Bipolar 1 disorder (HCC) PTSD (post-traumatic stress disorder) Hypertension Depression Thyroid disease Family History Medical History Relation Name Comments Breast cancer Mother Relation Name Status Comments Mother Social History Tobacco Use Types Packs/Day Years Used Date Smoking Tobacco: Never Smokeless Tobacco: Never Tobacco Cessation:Counseling Given: Not Answered AUDIT-C Answer Date Recorded Q1: How often do you have a drink containing alcohol? Never 08/12/2022 Q2: How many drinks containi ng alcohol do you have on a typical day when you are drinking? Patient does not drink Q3: How often do you have si x or more drinks on one occasion? 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 Gender Identity Not on file Sexual Orientation Not on file Obstetrics History Last Filed Vital Signs Vital Sign Reading Time Taken Comments Blood Pressure - - Pulse - - Temperature - - Respiratory Rate - - Oxygen Saturation - - Inhaled Oxygen Concentration - - Weight 102.1 kg (225 lb) 08/12/2022 8:50 AM CDT Height 162.6 cm (5' 4) 08/12/2022 8:50 AM CDT Body Mass Index 38.62 08/12/2022 8:50 AM CDT Plan of Treatment Health Maintenance Due Date Last Done Comments Breast Cancer Screening-Mammogram 1980 Cervical Cancer Screening 1980 Colon Cancer Screening-Colonoscopy 1980 Depression Screening 1980 Hepatitis C Screening 1980 DTaP/Tdap/Td Vaccine (1 - Tdap) 01/26/1991 Varicella Vaccines (1 of 2 - 13+ 2-dose series) 01/26/1993 Hepatitis B Screening 01/26/1998 Regular Well Visit/Exam 18-64 01/26/1998 Pneumococcal vaccine <65 (2 of 2 - PCV) 10/30/2022 10/30/2021 Influenza Vaccine (Season Ended) 2025 10/23/19 22 HPV Vaccines Aged Out No longer eligi ble based on patient's age to complete this topic Insurance MEDICARE MEDICARE Care Teams Cement Worker Relationship Specialty Start Date End Date Martha Nolen MD PCP - General Family Medicine 05/30/22 Letty Giordano MD [phone] [facility] [address] [place] [address] Referring Physician Obstetrics and Gynecology 08/26/22
--- OUTSIDE RECORDS SUMMARY | 2025-04-13 16:10 | XMS_ITS | Referral Summary ---
Author Organization [facility] Address [address] [place] [phone] Care Team Providers Care Motion Picture Projectionist Apprentice Name Role Phone Martha Nolen MD Primary Care Provider + eLtty Giordano MD Unavailable [phone] Allergies Active Allergy Reactions Criticality Noted Date Comments Avocado Oil Other (See comments),Swelling Medium 06/11/2018 Gluten Stomach upset Low 06/11/2018 [place] Extract Itching Low 11/11/2019 Prazosin Palpitations Low [...] Diagnosed Date Mass of left breast 08/12/2022 Social History Tobacco Use Types Packs/Day Years [...] on file 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 Gender Identity Not on file Sexual Orientation Not on file Last Filed Vital Signs Vital Sign Reading Time Taken Comments Blood Pressure - - Pulse - - Temperature - - Respiratory Rate - - Oxygen Saturation - - Inhaled Oxygen Concentration - - Weight 102.1 kg (225 lb) 08/12/2022 8:50 AM CDT Height 162.6 cm (5' 4) 08/12/2022 8:50 AM CDT Body Mass Index 38.62 08/12/2022 8:50 AM CDT Plan of Treatment Not on [place] [address] [place] [address] Care Teams Motion Picture Projectionist Apprentice Relationship Specialty Start Date End Date Martha Nolen MD PCP - General Family Medicine 05/30/22 Letty Giordano MD [phone] [address] Referring Physician Obstetrics and Gynecology 08/26/22
--- OUTSIDE RECORDS SUMMARY | 2025-04-13 16:10 | XMS_ITS | Clinical Summary ---
Author Organization [facility] Address [address] [place] [address] Care Team Providers Care Coke Drawer Hand Name Role Phone Ry Nolen MD Primary Care Provider [phone] Allergies Active Allergy Reactions Criticality Noted Date Comments Avocado Oil Swelling,Other (See Comments) Low 06/11/2018 Gluten Abdominal Pain Low 06/11/2018 [place] Extract Itching Low 11/11/2019 Prazosin Palpitations Low 06/11/2018 Shellfish Containing Products Anaphylaxis High 06/11/2018 Medications lisinopriL (PRINIVIL) 20 mg tablet Take 20 mg by mouth daily at bedtime. 3 Active metoprolol succinate (TOPROL XL) 50 mg Extended Release 24 hour tablet 3 Active CALCIUM CARBONATE-RUBINA MIN D3 ORAL Take 5,000 Units/day by mouth. Active coenzyme Q10 100 mg Capsule Take 100 mg by mouth daily. Active esomeprazole magnesium (NEXIUM ORAL) Take 20 mg by mouth. Active docusate sodium (COLACE) 100 mg capsule Take 100 mg by mouth. Active Advair Diskus 250-50 mcg/dose disk inhaler Take 1 Puff by inhalation 2 times daily. 3 Active albuterol sulfate HFA 90 mcg/actuation aerosol inhaler Take 1 Puff by inhalation 1 time daily as needed. 3 Active EPINEPHrine (EPIPEN) 0.3 mg/0.3 mL Auto-Injector Inject 0.3 mg by subcutaneous injection one time as needed. 3 Active FreeStyle Tom 3 Sensor Device CHANGE EVERY 14 DAYS 3 Active Synthroid 100 mcg tablet Take 1 Tablet by mouth daily. 4 Active SSD 1 % Cream apply to the affected area twice daily 4 Active semaglutide (Ozempic) 2 mg/dose (8 mg/3 mL) Pen Injector Inject 2 mg by subcutaneous injection every 7 days. 3 mL 8 04/06/2025 4:07 PM CDT 5 Active benztropine (COGENTIN) 1 mg tablet Take 1 Tablet (1 mg) by mouth 2 times daily. 180 Tablet 5 Active lamoTRIgine (LaMICtal) 150 mg tablet Take 1 Tablet (150 mg) by mouth 2 times daily. 180 Tablet 5 Active QUEtiapine (SEROquel) 400 mg tablet Take 1 Tablet (400 mg) by mouth daily at bedtime. 90 Tablet 5 Active QUEtiapine (SEROquel) 25 mg tablet Take 1-2 Tablets (25-50 mg) by mouth 3 times daily as needed for Other (See Comment) (Panic). 90 Tablet 5 Active sertraline (ZOLOFT) 25 mg tablet Take 1 Tablet (25 mg) by mouth daily. 90 Tablet 5 Active traZODone (DESYREL) 100 mg tablet Take 0.5-1 Tablets (50-100 mg) by mouth nightly as needed for Insomnia. 90 Tablet 5 Active benztropine (COGENTIN) 1 mg tablet Take 1 Tablet (1 mg) by mouth 2 times daily. 180 Tablet 5 025 Discontin ued(Reord er) lamoTRIgine (LaMICtal) 150 mg tablet Take 1 Tablet (150 mg) by mouth 2 times daily. 180 Tablet 5 025 Discontin ued(Reord er) QUEtiapine (SEROquel) 400 mg tablet Take 1 Tablet (400 mg) by mouth daily at bedtime. 90 Tablet 5 025 Discontin ued(Reord er) QUEtiapine (SEROquel) 25 mg tablet Take 1-2 Tablets (25-50 mg) by mouth 3 times daily as needed for Other (See Comment) (Panic). 90 Tablet 5 025 Discontin ued(Reord er) traZODone (DESYREL) 100 mg tablet Take 0.5-1 Tablets (50-100 mg) by mouth nightly as needed for Insomnia. 90 Tablet 5 025 Discontin ued(Reord er) sertraline (ZOLOFT) 25 mg tablet Take 1 Tablet (25 mg) by mouth daily. 90 Tablet 5 025 Discontin ued(Reord er) Active Problems Problem Noted Date Diagnosed Date Panic disorder with agoraphobia 09/25/2023 Type 2 diabetes mellitus 03/27/2023 Hypertension 03/27/2023 Hypothyroidism 03/27/2023 Borderline personality disorder 11/11/2019 Bipolar II disorder 11/11/2019 Fibromyalgia 11/11/2019 Asthma 06/11/2018 PTSD (post-traumatic stress disorder) 06/11/2018 IBS (irritable bowel syndrome) 06/11/2018 Celiac disease 06/11/2018 Migraines 06/11/2018 Resolved Problems Problem Noted Date Diagnosed Date Resolved Date Major depressive disorder, r ecurrent episode, moderate 11/11/2019 08/08/2020 STD (female) 06/11/2018 11/14/2022 Encounters Date Type Department Care Team Description 04/04/2025 External Device Data ST[facility] ABSTRACTION Provider, Abstract 03/29/2025 2:20 PM CDT Video Visit [address] [place] [address] Roxi Sandra MD Bipolar II disorder, most recent episode major depressive (CMS/HCC) (Primary Dx); PTSD (post-traumatic stress disorder); Borderline personality disorder (CMS/HCC) 03/29/2025 External Device Data [facility] ABSTRACTION Provider, Abstract 02/14/2025 11:30 AM CDT Confidential [facility] Psychiatry [address] [place] [address] Roxi Sandra MD None 01/24/2025 External Device Data [facility] ABSTRACTION Provider, Abstract from Last 3 Months Immunizations Immunization Administration Dates Next Due INFLUENZA VACCINE TRIVALENT SPLIT VIRUS, (6 MOS UP), 0.5ML (PF), IM 07/20/2024 Family History Medical History Relation Name Comments Alcohol abuse Father Parkinson's Disease Father Breast Cancer Mother Heart Disease Mother Relation Name Status Comments Father Alive Maternal Grandfather Maternal Grandmother Mother Alive Paternal Grandfather Paternal Grandmother Sister 1 Alive Sister 2 Alive Social History Tobacco Use Types Packs/Day Years Used Date Smoking Tobacco: Never Smokeless Tobacco: Never Tobacco Cessation:Counseling Given: Not Answered Alcohol Use Standard Drinks/Week Comments Not Currently 0 (1 standard drink = 0.6 oz pur e alcohol) Comments No Sex and Gender Information Value Date Recorded Sex Assigned at Not on file Legal Sex Female 10:24 PM CDT Gender Identity Not on file Sexual Orientation Not on file Last Filed Vital Signs Vital Sign Reading Time Taken Comments Blood Pressure 106/60 02/14/2025 11:29 AM CDT Pulse 79 02/14/2025 11:29 AM CDT Temperature 36.8 C (98.3 F) 07/10/2020 10:03 AM CDT Respiratory Rate 16 11/01/2021 9:00 AM FREE LANCE ARTIST Oxygen Saturation 99% 02/14/2025 11:29 AM CDT Inhaled Oxygen Concentration - - Weight 87.4 kg (192 lb 9.6 oz) 02/14/2025 11:29 AM CDT Height 162.6 cm (5' 4) 02/14/2025 11:29 AM CDT Body Mass Index 33.06 02/14/2025 11:29 AM CDT Plan of Treatment Upcoming Encounters Date Type Department Care Team (Late st Contact Info) Description 06/21/2025 12:30 PM CDT Video Visit [facility] Psychiatry [facility] [place] [address] [facility] [place] [address] Roxi Sandra MD [address] [facility] [place] [facility] [place] [address] Health Maintenance Due Date Last Done Comments DIABETES ANNUAL FOOT EXAM 01/26/1998 DIABETES ANNUAL RETINAL EXAM 01/26/1998 DIABETES MICROALBUMIN ANNUAL SCREEN 01/26/1998 LDL CHOLESTEROL ANNUAL 01/26/1998 DTAP/TDAP/TD VACCINES (1 - Tdap) 01/26/1999 HEPATITIS B VACCINES (1 of 3 - 19+ 3-dose series) 01/26/1999 HPV/Cotest (21-29) 01/26/2001 HPV/Cotest (30-65) 01/26/2010 BREAST CANCER SCREENING 08/26/2023 08/26/20 22, 05/23/2022, 11/18/2021, Additional history exists DIABETES HBA1C Q 6 MONTHS 09/13/20232022, 10/24/2021, 10/31/2020, Additional history exists CERVICAL CANCER SCREENING 10/31/2023 PAP SMEAR 10/31/2023 10/31/2020 COLORECTAL SCREENING 01/26/2025 Colorectal Cancer Screening 01/26/2025 FIT-DNA Q 3 years 01/26/2025 FIT/FOBT Q 1 year 01/26/2025 Flex Sig/CT Colonography Q 5 years 01/26/2025 INFLUENZA VACCINE (#1) 2025 07/20/2024 HPV VACCINES Aged Out No longer eligi ble based on patient's age to complete this topic Insurance MEDICARE PART A AND B RX [employer] PLANS (INTERNAL) [facility] RX [employer]IME [employer]ERAPE[employer] Medicare Part D RX ALLWIN DATA Medicare Part B RX [employer] Medicare Part D MEDICARE PART A AND B Care Teams Coke Drawer Hand Relationship Specialty Start Date End Date Ry Nolen MD PCP - General Family Practice 09/14/18
[2025-04-13 16:16] VITALS: BP 114/84; PULSE 95; RESP 20; TEMP 36.8; O2SAT 100
[2025-04-13 20:03] VITALS: BP 119/71; PULSE 93; RESP 15; O2SAT 100
[2025-04-13 20:25] LABS: Hematocrit 46.6 % (37.0-47.0); Hemoglobin 15.7 g/dL (12.0-15.0); Immature Granulocyte Percent A 0.2 % (0-0.5); Lymphocytes Absolute Auto 2.11 K/mm3 (0.9-3.2); Mean Corpuscular HGB Conc 33.7 g/dl (32-36); Mean Corpuscular Hemoglobin 29.6 pg (26-34); Mean Corpuscular Volume 87.8 fl (80-100); Nucleated Red Blood Cells Absolute Auto 0.000 K/mm3 (0.0-0.012); Nucleated Red Blood Cells Perc 0.0 % (0.0-0.2); Platelet Count Result 264 k/mm3 (150-375); Red Blood Count 5.31 M/mm3 (4.2-5.4); White Blood Count 9.4 K/mm3 (4.5-10.0)
[2025-04-13 20:35] LABS: Alanine Aminotransferase 28 U/L (6-35); Albumin Level 4.9 g/dL (3.5-5.1); Alkaline Phosphatase 87 U/L (38-126); Anion Gap 13 mmol/L (4-12); Aspartate Amino Transferase 29 U/L (14-36); Bilirubin,Total 0.6 mg/dL (0.2-1.3); Blood Urea Nitrogen 13 mg/dL (7-17); Calcium 10.3 mg/dL (8.4-10.2); Carbon Dioxide 25 mmol/L (22-30); Chloride 99 mmol/L (98-107); Estimated CRCL calculation 66 ml/min; Estimated Glomerular Filt Rate 60; Glucose 124 mg/dL (65-110); Lipase 313 U/L (23-300); Potassium 3.8 mmol/L (3.4-5.0); Sodium 137 mmol/L (137-145); Total Protein 8.9 g/dL (6.3-8.2)
[2025-04-13 22:57] LABS: Add Urine Microscopic? NO; Appearance Urine Clear (Clear); Glucose Urine UA Negative (Negative); Leukocyte Esterase Ur Negative LEU/UL (Negative); Nitrate Urine Negative (Negative); Specific Grav Ur 1.009 (1.001-1.035)
--- OUTSIDE RECORDS SUMMARY | 2025-04-13 23:04 | XMS_ITS | Referral Summary ---
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
--- OUTSIDE RECORDS SUMMARY | 2025-04-13 23:04 | XMS_ITS | Clinical Summary ---
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
--- OUTSIDE RECORDS SUMMARY | 2025-04-13 23:04 | XMS_ITS | Clinical Summary ---
Author Organization [facility] Address [address] [place] [address] Care Team Providers Care Tile Conduit Layer Name Role Phone Ry Nolen MD Primary Care Provider [phone] Allergies Active Allergy Reactions Criticality Noted Date Comments Avocado Oil Swelling,Other (See Comments) Low 06/11/2018 Gluten Abdominal Pain Low 06/11/2018 [place] Extract Itching Low 11/11/2019 Prazosin Palpitations Low [...] Abstract 03/29/2025 2:20 PM CDT Video Visit [address] [place] [address] Roxi Sandra MD Bipolar II disorder, most recent episode major depressive (CMS/HCC) (Primary Dx); PTSD (post-traumatic stress disorder); Borderline personality disorder (CMS/HCC) 03/29/2025 External Device Data STL ABSTRACTION Provider, Abstract 02/14/2025 11:30 AM CDT Confidential [facility] Psychiatry [address] [place] [address] Roxi Sandra MD [...] CDT Respiratory Rate 16 11/01/2021 9:00 AM ARCHITECTURAL DESIGN LECTURER Oxygen Saturation 99% 02/14/2025 11:29 AM CDT Inhaled Oxygen Concentration - - Weight 87.4 kg (192 lb 9.6 oz) 02/14/2025 11:29 AM CDT Height 162.6 cm (5' 4) 02/14/2025 11:29 AM CDT Body Mass Index 33.06 02/14/2025 11:29 AM CDT Plan of Treatment Upcoming Encounters Date Type Department Care Team (Late st Contact Info) Description 06/21/2025 12:30 PM CDT Video Visit [facility] Psychiatry [facility] [place] [address] [facility] [place] [address] Roxi Sandra MD [address] [facility] [place] [facility] [place] [address] Health Maintenance Due Date [...] MEDICARE PART A AND B Care Teams Tile Conduit Layer Relationship Specialty Start Date End Date Ry Nolen MD PCP - General Family Practice 09/14/18
[2025-04-13 23:24] LABS: Pregnancy On Board Control Positive
--- NOTE | 2025-04-13 23:38 | ED_ITS ---
HPI - Abdominal Pain General Chief Complaint: Abdominal Pain <Tiana Gibson PA-C - Last Filed: 04/14/25 03:01> Stated Complaint: abd pain, n/v <Tiana Gibson PA-C - Last Filed: 04/14/25 03:01> Time Seen by Provider: 04/13/25 22:09 <Tiana Gibson PA-C - Last Filed: 04/14/25 03:01> History of Present Illness HPI narrative: 45-year-old female history of type 2 diabetes, anxiety, hypertension, hyperlipidemia, hypothyroidism presents to the emergency department for abdominal pain and rectal bleeding that started yesterday. Patient states yesterday evening she began having nausea and vomiting followed by diarrhea and bright red blood per rectum. She states the vomiting has resolved but the bright red blood per rectum and abdominal pain has persisted. She describes abdominal pain as a cramping sensation in her periumbilical region. Reports intermittent nausea. She denies fever, dysuria, hematuria, prior abdominal surgeries, prior history of EGD or colonoscopy. Denies recent antibiotic use, recent surgeries or hospitalizations, recent travel. Patient went to her PCPs office today and had an anoscopic performed which showed internal hemorrhoids. She is advised to come to the emergency department for rectal bleeding and abdominal pain and reported concerns for possible diverticulitis or diverticular bleed. <Tiana Gibson PA-C - Last Filed: 04/14/25 03:01> Related Data Home Medications: Home Medications ?Medication ?Instructions ?Recorded ?Confirmed ?Last Taken ?Type trazodone 50 mg tablet 100 mg PO HS PRN Insomnia 01/20/20 04/14/25 04/13/25 History docusate sodium 100 mg capsule 200 mg PO HS 05/05/20 04/14/25 04/13/25 History benztropine 1 mg tablet 1.5 mg PO HS 01/20/22 04/14/25 04/14/25 History cholecalciferol (vitamin D3) 125 125 mcg PO HS 01/20/22 04/14/25 04/14/25 History mcg (5,000 unit) tablet (Vitamin D3) coenzyme Q10 100 mg capsule 100 mg PO HS 01/20/22 04/14/25 04/14/25 History (CoQ-10) esomeprazole magnesium 20 mg 20 mg PO HS 01/20/22 04/14/25 04/14/25 History capsule,delayed release (Nexium 24HR) lamotrigine 150 mg tablet 300 mg PO HS 02/12/23 04/14/25 04/13/25 History (Lamictal) quetiapine 400 mg tablet 400 mg PO HS 09/22/24 04/14/25 Unknown History sertraline 25 mg tablet (Zoloft) 25 mg PO DAILY 03/30/25 04/14/25 04/14/25 History <Tiana Gibson PA-C - Last Filed: 04/14/25 03:01> Allergies/Adverse Reactions: Allergies Allergy/AdvReac Type Severity Reaction Status Date / Time avocado Allergy Severe Swelling Verified 04/14/25 01:23 bee venom protein (honey bee) Allergy Severe Anaphylaxis Verified 04/14/25 01:23 shellfish derived Allergy Severe Anaphylaxis Verified 04/14/25 01:23 erythromycin base Allergy Intermediate Vomiting Verified 04/14/25 01:23 guaifenesin Allergy Intermediate Hives Verified 04/14/25 01:23 prazosin Allergy Intermediate Hives Verified 04/14/25 01:23 gluten Allergy Mild Nausea Verified 04/14/25 01:23 metformin Allergy Mild Nausea Verified 04/14/25 01:23 oseltamivir Allergy Mild Nausea Verified 04/14/25 01:23 vortioxetine (From AdvReac Intermediate irritabilit Verified 04/14/25 01:23 Trintellix) y SHELL FISH Allergy Severe Anaphylaxis Uncoded 04/14/25 01:23 <Tiana Gibson PA-C - Last Filed: 04/14/25 03:01> Review of Systems 2 Review of Systems: All systems reviewed & are unremarkable except as noted in HPI and below <Tiana Gibson PA-C - Last Filed: 04/14/25 03:01> PMFSH Past Medical History Medical History: Medical History Hearing loss associated with syndrome of both ears Asthma Hypothyroid Type 2 diabetes mellitus with hyperglycemia Amenorrhea, unspecified Essential hypertension Class 2 obesity with body mass index (BMI) of 38.0 to 38.9 in adult Allergic rhinitis Bipolar disorder, unspecified (02/19/19) Body mass index (bmi) 38.0-38.9, adult (11/29/18) Fibromyalgia Obesity, unspecified Overweight (BMI 25.0-29.9) Bronchospasm <Tiana Gibson PA-C - Last Filed: 04/14/25 03:01> Family History Family History: Family History Grandparent Hypertension Acute myocardial infarction Family history of dementia Family history of thoracic aortic aneurysm Family history of congestive heart failure Mother Hypertension Acute myocardial infarction Family history of malignant neoplasm of breast in first degree relative Father Family history of Parkinson's disease Other Family history of lupus erythematosus Family history of migraine headaches <Tiana Gibson PA-C - Last Filed: 04/14/25 03:01> Social History Social History: Social History Smoking status: Never smoker Alcohol intake: never Substance use: never Substance use type: does not use Do You Feel Safe in your Home?: Yes Lack of Transportation: No Lack of Food: Never True Current Housing: I Have Housing Concerned About Future Housing: No Difficulty Paying Gas/Electric Bills: No Difficulty Paying for Meds: No Currently Unemployed: No Education: Bachelor's Degree Difficulty w/ Childcare or Family Care: No Living arrangements: with family Gender identity (if verbalized by the patient): Female Spiritual care concerns: No <Tiana Gibson PA-C - Last Filed: 04/14/25 03:01> Exam 2 Narrative: GENERAL: Well-appearing, well-nourished, and in no acute distress. HEAD: Normocephalic, atraumatic. EYES: EOMI. ENT: Nares clear, no rhinorrhea or epistaxis. Mucous membranes moist. NECK: Supple. CHEST: Clear to auscultation. No respiratory distress. HEART: Regular rate and rhythm. No murmur heard. Normal peripheral pulses. ABDOMEN: Normoactive bowel sounds. Abdomen soft mild tenderness periumbilical region. No rebound or rigidity. No CVA tenderness. Rectal exam chaperoned by Therese Henderson shows no external hemorrhoids, no palpable internal hemorrhoids or masses. Scant amount of bright red blood per rectum on exam glove with positive guaiac. No melena. EXTREMITIES: Normal range of motion. No edema. SKIN: Warm, dry, no rash. NEURO: No focal deficits. Alert and oriented x3 <Tiana Gibson PA-C - Last Filed: 04/14/25 03:01> Course Course Emergency Course: Patient care signed over by previous provider pending CT scan prior to safe discharge home. Her laboratory studies reviewed and unremarkable. Her physical examination was reviewed and unremarkable. She has internal hemorrhoids seen on endoscopy in clinic today. Her CT scan shows thickening of the descending consistent with nonspecific colitis which could be the source of her periumbilical pain and bleeding. Likely in inflammatory or infectious in nature but she is not febrile or having any leukocytosis. Will treat this with a short course of antibiotics. Incidental findings in the CT scan includes a pancreatic body mass at 2.8 cm and a ovarian mass at 2.9 cm with recommendations for follow-up. These are not likely contributing to her symptomatology but she will be made aware of them and have her follow-up with her primary care provider and GI doctor on outpatient basis. She will be given home prescriptions for ciprofloxacin and Flagyl and return precautions. <Abdoul Brito MD - Last Filed: 04/14/25 05:49> Vital Signs Vital signs: Vital Signs Temperature 36.8 C 04/13/25 16:16 Pulse Rate 95 04/13/25 16:16 Respiratory Rate 20 04/13/25 16:16 Blood Pressure 114/84 04/13/25 16:16 Pulse Oximetry 100 04/13/25 16:16 Temperature 36.6 C 04/14/25 04:42 Pulse Rate 96 04/14/25 04:42 Respiratory Rate 21 H 04/14/25 04:42 Blood Pressure 117/74 04/14/25 04:42 Pulse Oximetry 100 04/14/25 04:42 Oxygen Delivery Room Air 04/14/25 02:00 <Tiana Gibson PA-C - Last Filed: 04/14/25 03:01> Vital Signs Temperature 36.8 C 04/13/25 16:16 Pulse Rate 95 04/13/25 16:16 Respiratory Rate 20 04/13/25 16:16 Blood Pressure 114/84 04/13/25 16:16 Pulse Oximetry 100 04/13/25 16:16 Temperature 36.6 C 04/14/25 04:42 Pulse Rate 96 04/14/25 04:42 Respiratory Rate 21 H 04/14/25 04:42 Blood Pressure 117/74 04/14/25 04:42 Pulse Oximetry 100 04/14/25 04:42 Oxygen Delivery Room Air 04/14/25 02:00 <Abdoul Brito MD - Last Filed: 04/14/25 05:49> MDM - Abdominal Pain MDM Narrative Medical decision making narrative: 45-year-old female presents to the emergency department for abdominal pain and bright red blood per rectum since yesterday. See HPI for further history. Triage vitals are stable. Patient is afebrile and nontoxic appearing and resting comfortably in exam bed. Differential diagnosis includes but is not limited to diverticulosis, diverticulitis, colitis, gastroenteritis, hemorrhoids, rectal fissures. Will obtain lab work, UA, CT abdomen pelvis with contrast. Patient was given fluids, Zofran and morphine for pain control. CBC without leukocytosis. Hemoglobin is elevated at 15.7, fluids were provided. Chemistries show mild hypercalcemia of 10.3, gout fluids provided. Lipase mildly elevated at 313, presentation not consistent with pancreatitis. UA without evidence of UTI. Her lactic acid is within normal limits. Pending CT abdomen pelvis at time of sign-out to Dr. Brito. Patient is requesting her nighttime dosing of Lamictal and Seroquel which were provided. < Tiana Gibson PA-C - Last Filed: 04/14/25 03:01> Lab Data Result diagrams: 04/13/25 20:19 04/13/25 20:19 <Tiana Gibson PA-C - Last Filed: 04/14/25 03:01> Labs: Lab Results 04/13/25 04/13/25 04/14/25 Range/Units 20:19 22:47 01:29 WBC 9.4 (4.5-10.0) K/mm3 RBC 5.31 (4.2-5.4) M/mm3 Hgb 15.7 H (12.0-15.0) g/dL Hct 46.6 (37.0-47.0) % MCV 87.8 (80-100) fl MCH 29.6 (26-34) pg MCHC 33.7 (32-36) g/dl RDW 12.2 (11.5-14.5) % Plt Count 264 (150-375) k/mm3 MPV 10.0 (7.4-10.4) fl Immature Gran % (Auto) 0.2 (0-0.5) % Neut % (Auto) 70.4 (45.5-73.1) % Lymph % (Auto) 22.5 (18.3-44.2) % [place] % (Auto) 6.8 (2.6-8.5) % Eos % (Auto) 0.0 (0-4.4) % Baso % (Auto) 0.1 L (0.2-1.2) % Lymph # (Auto) 2.11 (0.9-3.2) K/mm3 [place] # (Auto) 0.6 (0.1-0.6) K/mm3 Eos # (Auto) 0.0 (0-0.3) K/mm3 Baso # (Auto) 0.0 (0.0-0.1) K/mm3 Abs Immat Gran (auto) 0.02 (0.00-0.031) K/mm3 Absolute Neuts (auto) 6.6 (1.3-6.7) K/mm3 Absolute Nucleated RBC 0.000 (0.0-0.012) K/mm3 Nucleated RBC % 0.0 (0.0-0.2) % Sodium 137 (137-145) mmol/L Potassium 3.8 (3.4-5.0) mmol/L Chloride 99 (98-107) mmol/L Carbon Dioxide 25 (22-30) mmol/L Anion Gap 13 H (4-12) mmol/L BUN 13 (7-17) mg/dL Creatinine 1.00 (0.7-1.0) mg/dL Estim Creat Clear Calc 66 ml/min Estimated GFR 60 (59 - ) Glucose 124 H (65-110) mg/dL Lactic Acid 0.9 (0.7-2.0) mmol/L Calcium 10.3 H (8.4-10.2) mg/dL Total Bilirubin 0.6 (0.2-1.3) mg/dL AST 29 (14-36) U/L ALT 28 (6-35) U/L Alkaline Phosphatase 87 (38-126) U/L Total Protein 8.9 H (6.3-8.2) g/dL Albumin 4.9 (3.5-5.1) g/dL Lipase 313 H (23-300) U/L Urine Color Yellow (Yellow) Urine Appearance Clear (Clear) Urine pH 6.0 (5.0-9.0) Ur Specific [place] 1.009 (1.001-1.035) Urine Protein Negative (Negative) mg/dL Urine Glucose (UA) Negative (Negative) mg/dL Urine Ketones Negative (Negative) mg/dL Ur Blood (Man) Negative (Negative) Urine Nitrate Negative (Negative) Urine Bilirubin Negative (Negative) Urine Urobilinogen 0.2 (<2.0) mg/dL Leukocyte Esterase Rfl Negative (Negative) BREONNA/UL Urine Test Negative <Tiana Gibson PA-C - Last Filed: 04/14/25 03:01> Lab Results 04/13/25 04/13/25 04/14/25 Range/Units 20:19 22:47 01:29 WBC 9.4 (4.5-10.0) K/mm3 RBC 5.31 (4.2-5.4) M/mm3 Hgb 15.7 H (12.0-15.0) g/dL Hct 46.6 (37.0-47.0) % MCV 87.8 (80-100) fl MCH 29.6 (26-34) pg MCHC 33.7 (32-36) g/dl RDW 12.2 (11.5-14.5) % Plt Count 264 (150-375) k/mm3 MPV 10.0 (7.4-10.4) fl Immature Gran % (Auto) 0.2 (0-0.5) % Neut % (Auto) 70.4 (45.5-73.1) % Lymph % (Auto) 22.5 (18.3-44.2) % [place] % (Auto) 6.8 (2.6-8.5) % Eos % (Auto) 0.0 (0-4.4) % Baso % (Auto) 0.1 L (0.2-1.2) % Lymph # (Auto) 2.11 (0.9-3.2) K/mm3 [place] # (Auto) 0.6 (0.1-0.6) K/mm3 Eos # (Auto) 0.0 (0-0.3) K/mm3 Baso # (Auto) 0.0 (0.0-0.1) K/mm3 Abs Immat Gran (auto) 0.02 (0.00-0.031) K/mm3 Absolute Neuts (auto) 6.6 (1.3-6.7) K/mm3 Absolute Nucleated RBC 0.000 (0.0-0.012) K/mm3 Nucleated RBC % 0.0 (0.0-0.2) % Sodium 137 (137-145) mmol/L Potassium 3.8 (3.4-5.0) mmol/L Chloride 99 (98-107) mmol/L Carbon Dioxide 25 (22-30) mmol/L Anion Gap 13 H (4-12) mmol/L BUN 13 (7-17) mg/dL Creatinine 1.00 (0.7-1.0) mg/dL Estim Creat Clear Calc 66 ml/min Estimated GFR 60 (59 - ) Glucose 124 H (65-110) mg/dL Lactic Acid 0.9 (0.7-2.0) mmol/L Calcium 10.3 H (8.4-10.2) mg/dL Total Bilirubin 0.6 (0.2-1.3) mg/dL AST 29 (14-36) U/L ALT 28 (6-35) U/L Alkaline Phosphatase 87 (38-126) U/L Total Protein 8.9 H (6.3-8.2) g/dL Albumin 4.9 (3.5-5.1) g/dL Lipase 313 H (23-300) U/L Urine Color Yellow (Yellow) Urine Appearance Clear (Clear) Urine pH 6.0 (5.0-9.0) Ur Specific [place] 1.009 (1.001-1.035) Urine Protein Negative (Negative) mg/dL Urine Glucose (UA) Negative (Negative) mg/dL Urine Ketones Negative (Negative) mg/dL Ur Blood (Man) Negative (Negative) Urine Nitrate Negative (Negative) Urine Bilirubin Negative (Negative) Urine Urobilinogen 0.2 (<2.0) mg/dL Leukocyte Esterase Rfl Negative (Negative) BREONNA/UL Urine Test Negative <Abdoul Brito MD - Last Filed: 04/14/25 05:49> Discharge Plan Discharge Clinical Impression: BRBPR (bright red blood per rectum), Abnormal CT scan, Colitis <RODRIGUEZ Abraham Last Filed: 04/14/25 03:01> Patient Disposition: Home <RODRIGUEZ Abraham Last Filed: 04/14/25 03:01> Condition: Stable <RODRIGUEZ Abraham Filed: 04/14/25 03:01> Instructions: Antibiotic Form <RODRIGUEZ Abraham Filed: 04/14/25 03:01> Additional Instructions: Please use the rectal suppositories as directed for internal hemorrhoids. Follow-up closely with the GI physician. Your CT scan reveals colitis which is inflammation of the bowel wall which can contribute to the bleeding. We will send you home with antibiotics to help control any infectious causes to colitis. Your CT scan also shows some incidental findings including a pancreatic body mass and a right ovarian cyst that need outpatient follow-up. Follow-up with your regular doctor and GI doctor about these findings there but they are unlikely to be related to her symptoms today. Return to the emergency department if you develop worsening or changing abdominal pain, fever, lightheadedness, loss of consciousness, chest pain or shortness of breath, or other concerning symptoms. <Tiana Gibson PA-C - Last Filed: 04/14/25 03:01> Patient Language: Scottish <RODRGIUEZ Abraham Last Filed: 04/14/25 03:01> Prescriptions: New hydrocortisone acetate 25 mg suppository 25 mg RECTAL HS Qty: 12 0RF ciprofloxacin HCl [Cipro] 500 mg tablet 500 mg PO Q12H 5 Days Qty: 10 0RF metronidazole 500 mg tablet 500 mg PO Q8H 5 Days Qty: 15 0RF ciprofloxacin HCl [Cipro] 500 mg tablet 500 mg PO Q12H 5 Days Qty: 10 0RF metronidazole 500 mg tablet 500 mg PO Q8H 5 Days Qty: 15 0RF hydrocortisone acetate 25 mg suppository 25 mg RECTAL DAILY Qty: 12 0RF No Action trazodone 50 mg tablet 100 mg PO HS PRN (Reason: Insomnia) lamotrigine [Lamictal] 150 mg tablet 300 mg PO HS epinephrine [EpiPen 2-Jerardo] 0.3 mg/0.3 mL auto-injector 0.3 mg IM ONCE Qty: 2 0RF Rx Instructions: as a single dose; may repeat once quetiapine 400 mg tablet 400 mg PO HS sertraline [Zoloft] 25 mg tablet 25 mg PO DAILY docusate sodium 100 mg Capsule 200 mg PO HS benztropine 1 mg tablet 1.5 mg PO HS coenzyme Q10 [CoQ-10] 100 mg Capsule 100 mg PO HS cholecalciferol (vitamin D3) [Vitamin D3] 125 mcg (5,000 unit) Tablet 125 mcg PO HS esomeprazole magnesium [Nexium 24HR] 20 mg Capsule,Delayed Release(Dr/Ec) 20 mg PO HS albuterol sulfate [Ventolin HFA] 90 mcg/actuation HFA aerosol inhaler 2 inh INHALATION Q4-6H Qty: 18 1RF (DME) FreeStyle Tom 3 Plus Sensor Device See Rx Instructions .Route Qty: 6 3RF Rx Instructions: As directed (DME) FreeStyle Tom 3 [place] Misc See Rx Instructions .Route Qty: 1 0RF Rx Instructions: As directed lisinopril 20 mg tablet 20 mg PO HS Qty: 90 1RF metoprolol succinate 50 mg tablet extended release 24 hr 50 mg PO HS Qty: 30 5RF Ozempic 2 mg/dose (8 mg/3 mL) pen injector 2 mg subcut WEEKLY Qty: 3 8RF levothyroxine [Synthroid] 100 mcg tablet See Rx Instructions .ROUTE .COMPLEX Qty: 90 0RF Dose Instruction: TAKE 1 TABLET BY MOUTH DAILY Rx Instructions: TAKE 1 TABLET BY MOUTH DAILY triamcinolone acetonide 0.1 % cream 1 applic topical BID Qty: 80 1RF <Tiana Gibson PA-C - Last Filed: 04/14/25 03:01> Follow-up/Referrals: Martha Nolen MD [Primary Care Provider] - Jay Thompson MD [Physician] - <Tiana Gibson PA-C - Last Filed: 04/14/25 03:01> Time of Disposition: 04:09 <Tiana Gibson PA-C - Last Filed: 04/14/25 03:01> 04:09 <Abdoul Brito MD - Last Filed: 04/14/25 05:49>
[2025-04-14] MEDS: MORPHINE SULFATE (*CRX) 4 MG/ML INJ IV PUSH (01:15)
[2025-04-14] MEDS: SODIUM CHLORIDE 0.9% IV 1,000 ML 999 ML IV CONT (01:16)
[2025-04-14] MEDS: ONDANSETRON INJ 4 MG/2 ML VIAL IV PUSH (01:16)
[2025-04-14 02:00] VITALS: BP 117/74; PULSE 88; RESP 18; O2SAT 96
[2025-04-14] MEDS: lamoTRIgine 50 MG TABLET 150 MG PO (02:10)
[2025-04-14 02:16] VITALS: BP 117/74; PULSE 89; RESP 15; O2SAT 100
[2025-04-14] MEDS: CIPROFLOXACIN 500 MG TAB PO (04:28)
[2025-04-14 04:42] VITALS: BP 117/74; PULSE 96; RESP 21; TEMP 36.6; O2SAT 100
== END 2025-04-14 04:27 | disposition home or self-care (01) ==
PROVIDERS: Student in an Organized Health Care Education/Training Program; Emergency Provider Physician Assistant; PCP Family Medicine
DX: K62.5 Hemorrhage of anus and rectum (principal); K52.9 Noninfective gastroenteritis and colitis, unspecified; R93.5 Abnormal findings on diagnostic imaging of other abdominal regions, including retroperitoneum; E78.5 Hyperlipidemia, unspecified; E11.9 Type 2 diabetes mellitus without complications; I10 Essential (primary) hypertension; E03.9 Hypothyroidism, unspecified; Z79.899 Other long term (current) drug therapy
CPT/HCPCS: 36415; 74176; 80053; 81003; 81025; 83605; 83690; 85025; 96361; 96374; 96375; 99284; A9270; J2270; J2405; J7030

== ENCOUNTER 2025-05-13 09:39 | Outpatient (CLI) | payer MEDICARE, SELFPAY ==
--- NOTE | ~2025-05-13 | MR_ITS ---
MRI of the abdomen: Clinical indication: Pancreatic lesion. Technique: Coronal SSFSE ARC, WATER:coronal LAVA-FLEX, Coronal 2D FIESTA FatSat, Axial SSFSE BH ARC, Axial 3D DualEcho BH, Axial SSFSE-IR, Axial DWI b=500, Axial 2D FIESTA FatSat, pre and dynamic postco ntrast Axial LAVA ARC, postcontrast Coronal In and Opposed phase LAVA FLEX. Following intravenous adm inistration of 17 cc MultiHance gadolinium, T1-weighted fat-sat imaging was performed in the axial an d coronal planes. COMPARISON: CT scan dated 04/13/2025 Findings: Gallbladder is unremarkable. The common bile duct is normal in course and caliber. No filli ng defects are seen within the CBD. No evidence of intrahepatic biliary ductal dilatation. The pancre atic duct is normal in size. Liver, spleen, adrenals, kidneys appear normal. There is a 2.5 x 2.1 cm mass at the junction of pancr eatic body and tail, which correlates with the CT finding. The lesion is T1 hyperintense, T2 hypointe nse, and demonstrates no appreciable postcontrast enhancement. The aorta and the paraaortic regions a ppear normal. Impression: 2.5 x 2.1 cm pancreatic mass, as detailed above, which correlates with the prior CT finding. 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 Follow-up exam in one year recommended to reassess. Reviewed, dictated and finalized at [facility]. Impression: 2.5 x 2.1 cm pancreatic mass, as detailed above, which correlates with the prio r CT finding. Lack of enhancement and peripheral calcification on CT is most lunsford ggestive of mucinous cystadenoma. Follow-up exam in one year recommended to juan jose ssess.
--- OUTSIDE RECORDS SUMMARY | 2025-05-13 09:43 | XMS_ITS | Clinical Summary ---
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 Gender Identity Not on file Sexual Orientation [...] (1 of 2 - 13+ 2-dose series) 1992 Hepatitis B Screening 01/26/1998 Regular Well Visit/Exam 18-64 01/26/1998 HPV Vaccines (1 - 3-dose SCDM series) 01/26/2007 Pneumococcal vaccine <65 (2 of 2 - PCV) 10/30/2022 0 10/30/2021 Influenza Vaccine (#1) 2025 10/23/2021 Insurance MEDICARE MEDICARE Care Teams Slot Router Relationship Specialty Start Date End Date Martha Nolen MD PCP - General Family Medicine 05/30/22 Letty Giordano MD [id number] [facility] [address] [place] [address] Referring Physician Obstetrics and Gynecology 08/26/22
--- OUTSIDE RECORDS SUMMARY | 2025-05-13 09:43 | XMS_ITS | Referral Summary ---
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
--- OUTSIDE RECORDS SUMMARY | 2025-05-13 09:43 | XMS_ITS | Clinical Summary ---
Author Organization [facility] Address [address] [place] [address] Care Team Providers Care Cloth Tester Quality Name Role Phone Ry Nolen MD Primary Care Provider [phone] Allergies Active Allergy Reactions Criticality Noted Date Comments Avocado Oil Swelling,Other (See Comments) Low 06/11/2018 Gluten Abdominal Pain Low 06/11/2018 [place] Extract Itching Low 11/11/2019 Prazosin Palpitations Low 06/11/2018 Shellfish Containing Products Anaphylaxis High 06/11/2018 Medications lisinopriL (PRINIVIL) 20 mg tablet Take 20 mg by mouth daily at bedtime. 01/28/20 23 Active metoprolol succinate (TOPROL XL) 50 mg Extended Release 24 hour tablet 02/10/20 23 Active CALCIUM CARBONATE-VITAM IN D3 ORAL Take 5,000 Units/day by mouth. Active coenzyme Q10 100 mg Capsule Take 100 mg by mouth daily. Active esomeprazole magnesium (NEXIUM ORAL) Take 20 mg by mouth. Active docusate sodium (COLACE) 100 mg capsule Take 100 mg by mouth. Active Advair Diskus 250-50 mcg/dose disk inhaler Take 1 Puff by inhalation 2 times daily. 02/13/20 23 Active albuterol sulfate HFA 90 mcg/actuation aerosol inhaler Take 1 Puff by inhalation 1 time daily as needed. 02/13/20 23 Active EPINEPHrine (EPIPEN) 0.3 mg/0.3 mL Auto-Injector Inject 0.3 mg by subcutaneous injection one time as needed. 03/17/20 23 Active FreeStyle Tom 3 Sensor Device CHANGE EVERY 14 DAYS 10/01/20 23 Active Synthroid 100 mcg tablet Take 1 Tablet by mouth daily. 12/11/19 24 Active SSD 1 % Cream apply to the affected area twice daily 03/15/20 24 Active semaglutide (Ozempic) 2 mg/dose (8 mg/3 mL) Pen Injector Inject 2 mg by subcutaneous injection every 7 days. 3 mL 8 5 4:07 PM CDT 01/13/20 25 Active benztropine (COGENTIN) 1 mg tablet Take 1 Tablet (1 mg) by mouth 2 times daily. 180 Tablet 03/29/20 25 Active lamoTRIgine (LaMICtal) 150 mg tablet Take 1 Tablet (150 mg) by mouth 2 times daily. 180 Tablet 03/29/20 25 Active QUEtiapine (SEROquel) 400 mg tablet Take 1 Tablet (400 mg) by mouth daily at bedtime. 90 Tablet 03/29/20 25 Active QUEtiapine (SEROquel) 25 mg tablet Take 1-2 Tablets (25-50 mg) by mouth 3 times daily as needed for Other (See Comment) (Panic). 90 Tablet 03/29/20 25 Active sertraline (ZOLOFT) 25 mg tablet Take 1 Tablet (25 mg) by mouth daily. 90 Tablet 03/29/20 25 Active traZODone (DESYREL) 100 mg tablet Take 0.5-1 Tablets (50-100 mg) by mouth nightly as needed for Insomnia. 90 Tablet 03/29/20 25 Active hydrocortisone acetate (ANUSOL-HC) 25 mg Suppository Insert 1 Suppository (25 mg) by rectum daily. 12 Suppository 5 2:50 PM CDT 04/14/20 25 Active Glyxambi 10-5 mg tablet Take 1 Tablet by mouth daily in the morning. 90 Tablet 5 7:24 PM CDT 04/18/20 25 Active empagliflozin (Jardiance) 25 mg tablet Take 1 Tablet (25 mg) by mouth daily in the morning. 90 Tablet 1 5 10:58 AM CDT 04/25/20 25 Active ciprofloxacin HCl (CIPRO) 500 mg tablet Take 1 Tablet (500 mg) by mouth every 12 hours for 5 days. 10 Tablet 5 2:50 PM CDT 04/14/20 25 025 metroNIDAZOLE (FLAGYL) 500 mg tablet Take 1 Tablet (500 mg) by mouth every 8 hours for 5 days. 15 Tablet 5 2:50 PM CDT 04/14/20 25 025 Active Problems Problem Noted Date Diagnosed Date [...] Encounters Date Type Department Care Team Description 04/26/2025 External Device Data STL ABSTRACTION Provider, Abstract 04/26/2025 External Device Data STL ABSTRACTION Provider, Abstract 04/04/2025 External Device Data STL ABSTRACTION Provider, Abstract 03/29/2025 2:20 PM CDT Video Visit [facility] Psychiat[facility] [address] [place] [address] Roxi Sandra MD Bipolar II disorder, most recent episode major depressive (CMS/HCC) (Primary Dx); PTSD (post-traumatic stress disorder); Borderline personality disorder (CMS/HCC) 03/29/2025 External Device Data STL ABSTRACTION Provider, Abstract 02/14/2025 11:30 AM CDT Confidential [facility] [address] [place] [address] Roxi Sandra MD None from Last 3 Months Immunizations Immunization Administration [...] CDT Respiratory Rate 16 11/01/2021 9:00 AM 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 EDGE GRINDER MACHINE Oxygen Saturation 99% 02/14/2025 11:29 AM CDT Inhaled Oxygen Concentration - - Weight 87.4 kg (192 lb 9.6 oz) 02/14/2025 11:29 AM CDT Height 162.6 cm (5' 4) 02/14/2025 11:29 AM CDT Body Mass Index 33.06 02/14/2025 11:29 AM CDT Plan of Treatment Upcoming Encounters Date Type Department Care Team (Late st Contact Info) Description 06/21/2025 12:40 PM CDT Video Visit [facility] Psychiatry [facility] and [address] [place] [address] Roxi Sandra MD [facility] [place] [address] Health Maintenance Due Date Last Done Comments HPV VACCINES (1 - 3-dose series) 01/26/1995 DIABETES ANNUAL FOOT EXAM 01/26/1998 DIABETES MICROALBUMIN ANNUAL SCREEN 01/26/1998 [...] years 01/26/2025 INFLUENZA VACCINE (#1) 2025 07/20/2024 DIABETES ANNUAL RETINAL EXAM 02/17/202606/2025, 01/06/2025, 01/06/2025, Additional history exists Insurance MEDICARE PART A AND B RX [employer] (INTERNAL) [facility] [employer] RX [employer] Medicare Part D RX [employer] Medicare Part B RX [employer] Medicare Part D MEDICARE PART A AND B Care Teams Cloth Tester Quality Relationship Specialty Start Date End Date Ry Nolen MD PCP - General Family Practice 09/14/18
--- OUTSIDE RECORDS SUMMARY | 2025-05-13 09:43 | XMS_ITS | Continuity of Care Document ---
Author Organization [facility] Address [address] [place] [address] Phone Care Team Providers Care Vaccine Manager Name Role Phone Shaun Perkins DO Unavailable Unavailable Advance Directives Directive Yes / No Effective Date File Name No Information Encounters Encounter Description Practice Location Reason(s) For Visit Diagnoses Date Provider Providers Copied on Encounter [facility], [address] [place], [place], [id number], tel:[phone] SEC [facility] No Information Gregorio Alves. [address] [place] [address], [address], [place]. tel:[phone] Referring Provider: Shaun COLLADO, [address] [place] [address], [facility]. tel:[phone] Family History Family Member Type Diagnosis Age At Onset No Information Payers Payer name Insurance type Covered republican ID Authoriza tion(s) No Information Social History Type Description Quantity Date Captured Comments Sex Female Smoking Status No Information Chief Complaint And Reason For Visit No Information Reason For Referral Reason For Referral No Information History Of Present Illness Encounter Date Complaint History Of Prese nt Illness No Information Functional Status Date Functional Assessmen t No Information Instructions Date Instruction Additional Infor mation No Information Assessments Type Assessment Date No Information Patient Care Teams Name Effective Dates (start - stop) Status Members No Information
== END 2025-05-13 09:40 | disposition home or self-care (01) ==
PROVIDERS: PCP Family Medicine; Visit Provider Family Medicine
DX: D37.8 Neoplasm of uncertain behavior of other specified digestive organs (principal)
CPT/HCPCS: 74183; 76376; A9577

== ENCOUNTER 2025-05-15 12:49 | Outpatient (CLI) | payer MEDICARE, SELFPAY ==
--- NOTE | ~2025-05-15 | US_ITS ---
Pelvic ultrasound. Clinical History: Ovarian cyst Technique: Realtime transabdominal and transvaginal scanning of the pelvis was performed. Color flow Doppler and Doppler spectral analysis were performed. Findings: The uterus is anteverted. The endometrial stripe has a thickness of 10 mm. No focal mass i s identified. The right ovary measures 3.7 x 1.7 x 3.1 cm. Possible 2.5 cm right ovarian cyst. The left ovary measures 2.7 x 1.6 x 2.3 cm. No significant left ovarian or adnexal mass is seen. Vascular flow present in both ovaries on Doppler spectral analysis. There is no evidence of free fluid in the cul de sac. Impression: Possible 2.5 cm right ovarian cyst. Reviewed, dictated and finalized at location . Impression: Possible 2.5 cm right ovarian cyst.
--- OUTSIDE RECORDS SUMMARY | 2025-05-15 12:56 | XMS_ITS | Referral Summary ---
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
--- OUTSIDE RECORDS SUMMARY | 2025-05-15 12:56 | XMS_ITS | Clinical Summary ---
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
--- OUTSIDE RECORDS SUMMARY | 2025-05-15 12:56 | XMS_ITS | Clinical Summary ---
Author Organization [facility] Address [address] [place] [address] Care Team Providers Care Radiation / Chemistry Technician Name Role Phone Ry Nolen MD Primary Care Provider [phone] Allergies Active Allergy Reactions Criticality Noted Date Comments Avocado Oil Swelling,Other (See Comments) Low 06/11/2018 Gluten Abdominal Pain Low 06/11/2018 [place] Extract Itching Low 11/11/2019 Prazosin Palpitations Low [...] Abstract 03/29/2025 2:20 PM CDT Video Visit [facility] Psychiatry [address] [place] [address] Roxi Sandra MD Bipolar II disorder, most recent episode major depressive (CMS/HCC) (Primary Dx); PTSD (post-traumatic stress disorder); Borderline personality disorder (CMS/HCC) 03/29/2025 External Device Data STL ABSTRACTION Provider, Abstract 02/14/2025 11:30 AM CDT Confidential [facility] [address] [place] [address] Roxi Sandra MD [...] CDT Respiratory Rate 16 11/01/2021 9:00 AM TREATMENT TECHNICIAN Oxygen Saturation 99% 02/14/2025 11:29 AM CDT Inhaled Oxygen Concentration - - Weight 87.4 kg (192 lb 9.6 oz) 02/14/2025 11:29 AM CDT Height 162.6 cm (5' 4) 02/14/2025 11:29 AM CDT Body Mass Index 33.06 02/14/2025 11:29 AM CDT Plan of Treatment Upcoming Encounters Date Type Department Care Team (Late st Contact Info) Description 06/21/2025 12:40 PM CDT Video Visit [facility] Psychiatry [facility] and [address] [place] [address] Roxi Sandra MD [facility] [place] [address] Health Maintenance Due Date [...] MEDICARE PART A AND B Care Teams Radiation / Chemistry Technician Relationship Specialty Start Date End Date Ry Nolen MD PCP - General Family Practice 09/14/18
== END 2025-05-15 12:50 | disposition home or self-care (01) ==
PROVIDERS: PCP Family Medicine; Visit Provider Family Medicine
DX: N83.201 Unspecified ovarian cyst, right side (principal)
CPT/HCPCS: 76856

== ENCOUNTER 2025-06-02 01:56 | Day surgery (SDC) | payer MEDICARE, SELFPAY ==
[2025-05-26 13:35] VITALS: BMI 31.0
[2025-06-02 11:38] VITALS: BP 125/61; PULSE 67; RESP 20; TEMP 36.6; O2SAT 100
--- NOTE | 2025-06-02 11:49 | WPDANESEPPF ---
Anes - Initial Pre Proc Eval Procedure: Operation Date: 06/02/25 12:30 Proposed Procedures p Diagnostic Colonoscopy - Anselmo Carey MD Date/Time: 06/02/25 11:49 Surgeon: Anselmo Carey MD Pre Op Diagnosis: Left sided colitis with rectal bleeding Patient Data Age: 45 Gender: F Height: 1.63 m Weight: 87.9 kg Last Vital Signs Temp 36.6 C 06/02/25 11:38 Pulse 67 06/02/25 11:38 Resp 20 06/02/25 11:38 BP 125/61 06/02/25 11:38 Pulse Ox 100 06/02/25 11:38 O2 Del Method Room Air 06/02/25 11:38 Allergies Allergy/AdvReac Type Severity Reaction Status Date / Time avocado Allergy Severe Swelling Verified 06/02/25 11:33 bee venom protein (honey bee) Allergy Severe Anaphylaxis Verified 06/02/25 11:33 shellfish derived Allergy Severe Anaphylaxis Verified 06/02/25 11:33 erythromycin base Allergy Intermediate Vomiting Verified 06/02/25 11:33 guaifenesin Allergy Intermediate Hives Verified 06/02/25 11:33 prazosin Allergy Intermediate Hives Verified 06/02/25 11:33 gluten Allergy Mild Nausea Verified 06/02/25 11:33 metformin Allergy Mild Nausea Verified 06/02/25 11:33 oseltamivir Allergy Mild Nausea Verified 06/02/25 11:33 vortioxetine (From AdvReac Intermediate irritabilit Verified 06/02/25 11:33 Trintellix) y SHELL FISH Allergy Severe Anaphylaxis Uncoded 06/02/25 11:33 Home Medications ?Medication ?Instructions ?Recorded ?Confirmed ?Type docusate sodium 100 mg capsule 200 mg PO HS 05/05/20 06/02/25 History benztropine 1 mg tablet 1.5 mg PO HS 01/20/22 06/02/25 History cholecalciferol (vitamin D3) 125 125 mcg PO HS 01/20/22 06/02/25 History mcg (5,000 unit) tablet (Vitamin D3) coenzyme Q10 100 mg capsule 100 mg PO HS 01/20/22 06/02/25 History (CoQ-10) esomeprazole magnesium 20 mg 20 mg PO HS 01/20/22 06/02/25 History capsule,delayed release (Nexium 24HR) lamotrigine 150 mg tablet 300 mg PO HS 02/12/23 06/02/25 History (Lamictal) epinephrine 0.3 mg/0.3 mL 0.3 mg (0.3 mL) IM ONCE #2 ea 03/17/23 05/26/25 Rx injection, auto-injector (EpiPen 2-Jerardo) albuterol sulfate 90 mcg/actuation 2 inh inhalation Q4-6H #18 grams 05/30/24 06/02/25 Rx aerosol inhaler (Ventolin HFA) FreeStyle Tom 3 [place] #1 ea 06/28/24 05/19/25 Rx (blood-glucose,field map technician,cont) blood-glucose sensor (FreeStyle #6 ea 06/28/24 05/19/25 Rx Tom 3 Plus Sensor device) quetiapine 400 mg tablet 400 mg PO HS 09/22/24 06/02/25 History metoprolol succinate 50 mg 50 mg PO HS #30 tabs 12/12/24 06/02/25 Rx tablet,extended release 24 hr semaglutide 2 mg/dose (8 mg/3 mL) 2 mg (0.75 mL) subcut WEEKLY #3 mL 01/12/25 05/26/25 Rx subcutaneous pen injector (Ozempic) Held on 04/18/25. Instructions: colitis sertraline 25 mg tablet (Zoloft) 25 mg PO DAILY 03/30/25 06/02/25 History triamcinolone acetonide 0.1 % 1 applic topical BID #80 grams 04/05/25 06/02/25 Rx topical cream hydrocortisone acetate 25 mg 25 mg RECTAL DAILY #12 ea 04/14/25 05/26/25 Rx rectal suppository hydrocortisone acetate 25 mg 25 mg RECTAL HS #12 ea 04/14/25 05/26/25 Rx rectal suppository Glyxambi 10 mg-5 mg tablet 1 tablet PO QAM #90.0 tabs 04/18/25 05/26/25 Rx (empagliflozin-linagliptin) Held on 04/25/25. Instructions: pancreatitis Synthroid 100 mcg tablet See Rx Instructions .Route 04/24/25 06/02/25 Rx (levothyroxine) .COMPLEX #90 tabs lisinopril 20 mg tablet 20 mg PO HS #90 tabs 04/24/25 06/02/25 Rx empagliflozin 25 mg tablet 25 mg PO QAM #90 tabs 04/25/25 05/26/25 Rx (Jardiance) quetiapine 50 mg tablet 50 mg PO HS PRN episode 04/25/25 05/26/25 History trazodone 100 mg tablet 100 mg PO .COMPLEX 04/25/25 06/02/25 History Patient hx anesthesia problems: none Family hx anesthesia problems: none Results Review: All pre-operative results and documents have been reviewed as part of the pre-operative evaluation. [facility] Past Medical History Medical History Hearing loss associated with syndrome of both ears Asthma Hypothyroid Type 2 diabetes mellitus with hyperglycemia Amenorrhea, unspecified Essential hypertension Class 2 obesity with body mass index (BMI) of 38.0 to 38.9 in adult Allergic rhinitis Bipolar disorder, unspecified (11/30/18) Body mass index (bmi) 38.0-38.9, adult (11/29/18) Fibromyalgia Obesity, unspecified Overweight (BMI 25.0-29.9) Bronchospasm Family History Family History Grandparent Hypertension Acute myocardial infarction Family history of dementia Family history of thoracic aortic aneurysm Family history of congestive heart failure Mother Hypertension Acute myocardial infarction Family history of malignant neoplasm of breast in first degree relative Father Family history of Parkinson's disease Other Family history of lupus erythematosus Family history of migraine headaches Social History Social History Smoking status: Former smoker Tobacco type: cigarettes and e-cigarettes/vaping Alcohol intake: never Substance use: never Substance use type: does not use Do You Feel Safe in your Home?: Yes Lack of Transportation: No Lack of Food: Never True Current Housing: I Have Housing Concerned About Future Housing: No Difficulty Paying Gas/Electric Bills: No Difficulty Paying for Meds: No Currently Unemployed: No Education: Bachelor's Degree Difficulty w/ Childcare or Family Care: No Living arrangements: with family Gender identity (if verbalized by the patient): Female Spiritual care concerns: No Anes - Eval Final PreProcedure Day of Procedure 06/02/25 11:49 Patient weight: obese Heart: regular rate and rhythm Lungs: clear to auscultation Airway: Mallampati scale class II Neurological: alert and oriented Last oral intake: >/= 8 hours ASA classification: III Emergent: no Anesthetic plan: proceed Anesthesia type and monitoring: general GIVS and standard monitoring Results Review: All pre-operative results and documents have been reviewed as part of the pre-operative evaluation. Informed Consent: The patient's anesthetic plan and its attendant risks and benefits were discussed with the patient/family/POA. Questions were solicited and answers provided to the satisfaction of the patient/family/POA.
[2025-06-02] MEDS: LACTATED RINGERS 1,000 ML 150 ML IV CONT (12:09)
--- NOTE | 2025-06-02 12:47 | WPDHPUPDATE1 ---
History and Physical Update Update Date/Time: 06/02/25 12:47 History and Physical has been reviewed, including an updated exam of the patient. There are NO changes in the patient's condition. Risks, benefits, and alternatives have been discussed and questions answered. Patient agrees to proceed with procedure.
[2025-06-02 13:50] LABS: Beta HCG Quantitative < 2.39 mIU/ML
[2025-06-02 14:29] VITALS: BP 96/55; PULSE 66; RESP 27; O2SAT 99
[2025-06-02 14:39] VITALS: BP 95/53; PULSE 61; RESP 18; O2SAT 100
[2025-06-02 14:49] VITALS: BP 104/69; PULSE 69; RESP 23; O2SAT 100
== END 2025-06-02 14:58 | disposition home or self-care (01) ==
PROVIDERS: Anesthesiology; PCP Family Medicine; Referring Provider Nurse Practitioner Family; Visit Provider Internal Medicine Gastroenterology
PROC: 0DJD8ZZ Inspection of Lower Intestinal Tract, Via Natural or Artificial Opening Endoscopic (ICD-10-PCS; CPT 45378; principal; 2025-06-02 12:30)
DX: K64.8 Other hemorrhoids (principal); K21.9 Gastro-esophageal reflux disease without esophagitis; I10 Essential (primary) hypertension; E78.5 Hyperlipidemia, unspecified; E11.65 Type 2 diabetes mellitus with hyperglycemia; E03.9 Hypothyroidism, unspecified; J45.909 Unspecified asthma, uncomplicated; M79.7 Fibromyalgia; K86.9 Disease of pancreas, unspecified; R74.8 Abnormal levels of other serum enzymes; F31.9 Bipolar disorder, unspecified; E66.9 Obesity, unspecified; Z68.33 Body mass index [BMI] 33.0-33.9, adult; Z79.51 Long term (current) use of inhaled steroids; Z79.85 Long-term (current) use of injectable non-insulin antidiabetic drugs; Z79.84 Long term (current) use of oral hypoglycemic drugs; Z87.891 Personal history of nicotine dependence; Z87.19 Personal history of other diseases of the digestive system; Z80.3 Family history of malignant neoplasm of breast; Z82.49 Family history of ischemic heart disease and other diseases of the circulatory system
CPT/HCPCS: 45378; 36415; 82948; 84702; J2704; J7120